=== PATIENT | male | born 1955 | race Caucasian/White ===

== ENCOUNTER 2023-11-16 17:51 | Inpatient (IN) | payer MEDICARE, OTHER, SELFPAY ==
[2023-11-16 15:33] VITALS: BP 146/89
[2023-11-16 16:08] LABS: % Basophils 0.6 % (0-2); % Eosinophils 2.7 % (0-6); % Immature Granulocytes 0.9 % (0-0.5); % Lymphocytes 11.7 % (20.5-51.1); % Monocytes 10.6 % (1.7-9.3); % Neutrophils 73.5 % (42.2-75.2); Absolute Basophils 0.1 10^3/uL (0-0.2); Absolute Eosinophils 0.3 10^3/uL (0-0.7); Absolute Immature Granulocytes 0.1 10^3/uL (0-0.05); Absolute Lymphocytes 1.2 10^3/uL (1.2-3.4); Absolute Monocytes 1.1 10^3/uL (0.1-0.6); Absolute Neutrophils 7.5 10^3/uL (1.4-6.5); Hematocrit 39.1 % (39.0-52.0); Hemoglobin 13.2 g/dL (13.0-18.0); Mean Corp Hgb Conc. 33.8 g/dL (33.0-37.0); Mean Corpuscular Hgb 30.1 pg (27.0-31.0); Mean Corpuscular Volume 89.3 fL (80.0-94.0); Mean Platelet Volume 8.5 fL (7.4-10.4); Nucleated Red Blood Cells % 0 % (-); Platelet Count 425 10^3/uL (130-400); Red Blood Cell Count 4.38 10^6/uL (4.70-6.10); White Blood Cell Count 10.2 10^3/uL (4.8-10.8)
[2023-11-16 16:22] LABS: ALT (SGPT) 165 U/L (0-50); AST (SGOT) 120 U/L (17-59); Alkaline Phosphatase 129 U/L (38-126); Blood Urea Nitrogen 20 mg/dl (9-20); Calcium 9.3 mg/dl (8.4-10.2); Carbon Dioxide 25 mmol/L (22-30); Chloride 101 mmol/L (98-107); Glucose 169 mg/dl (70-99); Potassium 4.3 mmol/L (3.5-5.1); Sodium 136 mmol/L (135-145); Total Bilirubin 0.6 mg/dl (0.2-1.3); Total Protein 5.9 g/dl (6.3-8.2); eGFR > 60.00
--- NOTE | 2023-11-16 16:36 | ED.GENMED ---
History of Present Illness
General
Chief Complaint: Skin Problem
Source: patient and physician
Time Seen by Provider: 11/16/23 16:27
Travel History
Have you had any contact with someone who has COVID-19?: No
Do you have any symptoms of coronavirus? Fever > 100 degrees, chills, cough, shortness of breath, sore throat, loss of taste or smell, muscle aches, or headache?: No
History of Present Illness
History of Present Illness:
68-year-old male with past medical history of hypertension, hyperlipidemia, diabetes, previous VA, known diabetic neuropathy sent to the emergency department by primary care physician with concern for right great toe cellulitis/osteomyelitis that
patient notes he has had a chronic wound that has not been healing despite oral antibiotics over the last week or so. Patient states that due to diabetic neuropathy he is not in any pain. Denies any fevers, chills, rigors. Has never seen a
cigar head stringer. He has no other concerns at this time. Per patient's primary care physician patient has had poorly controlled diabetes with his last A1c being greater than 11.
Past History
Past History
ED Past Medical History: HTN, Hypercholesterolemia, NIDDM, VA and Other (Sleep apnea status post left knee meniscectomy )
ED Past Surgical History: Cardiac and Orthopedic
Social History
Tobacco: Non-smoker
Alcohol: None
Drug: None
Personal:
Living: with family
Family History
Family History: Diabetes
Review of Systems
Review of Systems
All Other Systems: ROS reviewed and negative except as documented in HPI and ROS
Phy Exam
Physical Exam
Physical Exam:
GENERAL: Alert , in no apparent distress
EYE: conjunctiva clear
Head: Normocephalic atraumatic
NECK: Supple,
ENT: mmm.
LUNGS: no acute respiratory distress
NEUROLOGICAL: Alert and oriented
SKIN: Warm and dry, right great toe: Distal aspect of the distal first metatarsal and entirety of the right great toe have significant erythema with skin breakdown and necrotic eschar over the toenail. Patient's second toe also appears to have a
small eschar/older appearing bruise underneath the toenail.
MUSCULOSKELETAL: Easily palpable DP and PT pulses. Sensory is diminished but patient reports that this is chronic. Cap refill less than 2 seconds.
PSYCH: Normal and appropriate interaction.
Scores
Heart Failure Risk
Heart Failure Risk Score: Not Applicable
Heart Score for Chest Pain Patients
STEMI patient?: Not applicable
Withdrawal Assessment of Alcohol
Withdrawal Assessment Completed?: Not applicable
Course
Orders/Labs/Results
Orders:
Orders
11/16/23 Dinner
2200 calorie (18 carb) Diabetic
At Your Request: Full Participation
Does patient need a safe tray?: No
11/16/23 15:46
CMP [Comprehensive Metabolic Panel] Urgent
Complete Blood Count/With Diff Urgent
Blood Culture Urgent
VAN Source: Blood/Venous
Specimen Description:
11/16/23 16:27
CR Foot - Left Min 3 Views Urgent
Reason For Exam: osteo/gangrene suspected
11/16/23 16:57
CRP [C-Reactive Protein] Urgent
ESR [Erythrocyte Sed Rate] Urgent
11/16/23 17:38
INFECTIOUS DISEASE CONSULT Routine
Consulting Provider: Aida Aguirre
Was physician already notified: Yes
Reason for consult: diabetic , gangrenous right great toe with poss osteo
11/16/23 17:39
Admit/Transfer Patient As Directed
Co-Sign Provider:
Level of Care: Inpatient admission
Assign to:: Medical/Surgical
Physician / Group: shola chu
Diagnosis: cellulitis R great toe with gangrene/likely osteo, dm2, transamintis
Reason for Hospitalization: cellulitis R great toe with gangrene/likely osteo, dm2, transamintis
Expected length of stay greater than two midnights?: Yes
ELOS- Estimated Length of Stay in days: 4
I certify the patient meets the requirements for IP care: Yes
11/16/23 17:41
Code Status As Directed
Resuscitation Status: Full Code
11/16/23 17:45
PODIATRY CONSULT Routine
Consulting Provider: Lamberto Reyna
Was physician already notified: Yes
Reason for consult: dibetic with cellulitis r great toe likely osteo
11/16/23 18:35
Aspirin Low Dose EC [Aspir Low (Enteric Coated)] 81 mg PO QPM
Dextrose 50%-Water [Dextrose 50% Syringe] 12.5 grams IV H74HMMS PRN
Glucagon [GlucaGen] 1 mg IM PRN PRN
VANCOMYCIN Pharmacy to Dose [VANCOCIN Pharmacy to Dose] 1 each Pharmacy To Prepare [Call Pharmacy To Prepare] 0 ml IV PER PROTOCOL
11/16/23 18:35
Activity As Directed
Activity Level: As Tolerated
Bedside Glucose Monitoring As Directed
Frequency: AC&HS
Comment: Change to q6h if pt on TPN, tube feeding or not eating
Vital Signs As Directed
Frequency: Per unit guidelines
Ot Eval And Treat Routine
Pt Eval And Treat Routine
Activity Level: As Tolerated
DX Deep Vein Thrombosis Video Routine
11/16/23 20:00
Piperacillin/Tazo 3.375 Gram [Zosyn] 3.375 gram in 50 ml IV Q6H
11/16/23 22:00
Insulin Glargine Lantus [Lantus] 25 units Subcutaneous Insulin Syringe [Syringe-Insulin] 0 unit SC HS
Latanoprost [Xalatan Ophthalmic Solution] 0 drop BOTH EYES HS
Cpap [RESP] Routine
Patient to use own unit?: Yes
11/17/23 Breakfast
NPO
Allow oral meds: Yes
Allow clear liquids: No
NPO with Ice Chips: No
Cardiovascular Evaluation IN AM
Complete Blood Count/With Diff IN AM
Comprehensive Metabolic Panel IN AM
Glycohemoglobin (HgbA1c) IN AM
11/17/23 07:30
Insulin Aspart High Resistance [Novolog Flexpen-High Resistance] See Protocol SC AC
11/17/23 08:00
Lisinopril [Zestril] 2.5 mg PO DAILY
11/17/23 18:00
Enoxaparin Sodium [Lovenox] 40 mg SC QPM
11/18/23 06:00
Complete Blood Count/With Diff IN AM
Comprehensive Metabolic Panel IN AM
11/19/23 06:00
Complete Blood Count/With Diff IN AM
Comprehensive Metabolic Panel IN AM
Abnormal Lab Results
11/16/23 11/16/23
15:46 16:57
RBC 4.38 L 10^6/uL
(4.70-6.10)
Plt Count 425 H 10^3/uL
(130-400)
Abs Immat Gran (auto) 0.1 H 10^3/uL
(0-0.05)
Absolute Neuts (auto) 7.5 H 10^3/uL
(1.4-6.5)
Absolute Monos (auto) 1.1 H 10^3/uL
(0.1-0.6)
Immature Gran % 0.9 H %
(0-0.5)
Lymphocytes % 11.7 L %
(20.5-51.1)
Monocytes % 10.6 H %
(1.7-9.3)
ESR 68 H mm/hour
(0-20)
Glucose 169 H mg/dl
(70-99)
AST 120 H U/L
(17-59)
ALT 165 H U/L
(0-50)
Alkaline Phosphatase 129 H U/L
(38-126)
C-Reactive Protein 140.50 H mg/L
(0.0-10.00)
Total Protein 5.9 L g/dl
(6.3-8.2)
Albumin 3.0 L g/dl
(3.5-5.0)
11/16/23 15:46
11/16/23 15:46
Vital Signs
Initial and Last Documented VS:
Initial Vital Signs
Temp Pulse Resp BP Pulse Ox
97.8 F 108 18 146/89 95
11/16/23 15:33 11/16/23 15:33 11/16/23 15:33 11/16/23 15:33 11/16/23 15:33
Last Documented Vital Signs
Temp Pulse Resp BP Pulse Ox
97.8 F 94 18 151/83 95
11/16/23 18:23 11/16/23 18:23 11/16/23 18:23 11/16/23 18:23 11/16/23 18:23
MDM/Problems Addressed
Differential Diagnosis Includes:
Cellulitis, osteomyelitis, necrotizing fasciitis
MDM/Problems Addressed:
68-year-old male presenting the emergency department for evaluation at the request of primary care physician ultimately for admission and surgical consultation with podiatry for a significant right great toe infection suspicious for osteomyelitis.
Patient is denying any fevers, chills, rigors. Labs were initiated in triage. Will add on inflammatory markers and x-ray. Will notify hospitalist team as well as podiatry.
Chronic conditions affecting care: DM
Acute Exacerbation and/or Progression of Chronic Illness: DM
*Radiology
Radiology exam reviewed: radiology read reviewed
*Pulse Oximetry
Patient hypoxic: no
*Critical Care Note
Total Time (30-74mins, 75-104mins- exclusive of procedures): Not Applicable
Data Reviewed
Review of Other/Old Records Reveals: Labs
Source: patient and physician
Patient Management
Discussion with other providers: Hospitalist, PCP and Atmospheric Physicist
Escalation/DeEscalation of care consider admission/obs:
Hospitalist team is aware and accepts for continued evaluation and treatment. Podiatry states that they will be down to the emergency department to evaluate the patient to help formulate treatment planning.
ED Attending Note
-
Portions of this chart may have been created with voice recognition software.� Occasional wrong word or��sound alike� substitutions may have occurred due to the inherent limitations of voice recognition software.
Discharge Plan
Departure
Patient Disposition: Admit
Date of Disposition: 11/16/23
Time of Disposition: 16:36
Presentation/result/management discussed w/ accepting MD/DO: Hospitalist
Discharge Problem:
Osteomyelitis of great toe of right foot, Diabetes mellitus, Transaminitis
Interventions
Interventions:
*Risk Screen - Suicide Last Done: 11/16/23 15:33
*General Assessment Last Done: 11/16/23 16:52
*Neglect/Abuse Screening Last Done: 11/16/23 15:33
ED- Fall Risk Assessment Last Done: 11/16/23 16:52
*ED COVID-19 Vaccine History Last Done: 11/16/23 15:33
*Nursing Disposition Last Done: 11/16/23 17:57
ED-Skin Assessment Last Done: 11/16/23 16:52
Discharge Date and Time
Discharge Date/Time: 11/16/23 18:10
--- NOTE | 2023-11-16 16:56 | HPS.HSE ---
Addendum entered and electronically signed by Cassi Epstein MD 11/16/23 18:05:
I saw and examined the patient.
The [employer] PRODUCT TESTER or PA's note was reviewed and I agree with the note.
Comment:
68 years old male presented with infection/gangrenous looking left big toe, highly suspicious for underlying osteomyelitis. Patient reported he was taking oral antibiotics at home with no improvement. No podiatry follow-up in the past. Poorly
controlled diabetes. Noncompliant with diet at home. Reportedly his hemoglobin A1c was more than 11. Patient denied chest pain, shortness of breath or palpitations.
Physical Exam
-
General: Well Developed and No Apparent Distress
HEENT: Normocephalic, Atraumatic, Moist Mucous Membranes.
Respiratory: Clear to Auscultation
Cardiac: Regular Rhythm and S1/S2;
GI: Soft, Nontender, Nondistended and Normal Bowel Sounds.
Rectal: No rectal bleeding noted.
Musculoskeletal: Left foot: necrotic wound around the big toe that track deep to the bone.
Skin: Negative Rash
Neuro: Awake, Alert, Oriented, AO x 3 and Nonfocal/Grossly Intact
Psych: Calm
#Right great toe cellulitis /gangrene with chronic wound /diabetic wound
Patient is not septic or toxic looking. No fever. No leukocytosis. Will check ESR and CRP
Empiric IV antibiotics.
-Order x-ray right foot
-N.p.o. 4 OR in a.m. for debridement with amputation right great toe possible MCP
-IV vancomycin, IV Zosyn
-Follow CBC, BMP
Appreciate podiatry and ID input/help
#DM 2/diabetic neuropathy�uncontrolled
Last HgbA1c> 11
-Accu-Cheks with SSI high, check HgbA1c
-2200 diet
-Hold Trulicity, Jardiance, metformin
-Continue Lantus 25 units at bedtime since patient will be n.p.o. past midnight
Patient is normally on 55 units at bedtime
#Acute transaminitis unclear etiology likely reactive
AST 120, ALT 165, alk phos 129
-Hold statin 40 mg at bedtime
-Follow lipid profile
#HTN�benign
Continue lisinopril 2.5 mg daily
#HLD
Hold statin due to transaminitis
#CAD/[place] status post cardiac stent 2013
�-pt advised� not take nitro with Sildenafil
-Continue aspirin 81 mg daily, hold current statin due to transaminitis continue lisinopril
#Sleep apnea
-CPAP patient may use own
#Erectile dysfunction
Hold sildenafil
DVT prophylaxis
Will start subcu Lovenox postsurgery tomorrow 11/17/2023
Total time spent to see the patient, examine the patient on the floor, review data and lab results, discuss treatment plan with patient, ER doctor and nursing staff around 75 minutes
Original Note:
Family Physician
-
Family Physician: Edgar Sethi
Chief Complaint
-
Right great toe cellulitis
History of Present Illness
68-year-old male sent by his PCP to the ER today for right great toe cellulitis concern for osteomyelitis. He has had a chronic wound that has been not healing since August and got worse over the past week with black eschar and erythema extending
to first MCP right great toe. He decided to take his amoxicillin 500 mg 3 times daily that he had for a prior dental infection. He denies headache, dizziness, chest pain, palpitations, shortness of breath, cough, abdominal pain, nausea vomiting or
diarrhea, fever, chills, urinary symptoms. He has past medical history of DM 2 poorly controlled with last A1c greater than 11. Other past medical history includes diabetic neuropathy, HTN, HLD, CAD/[place] status post stent, sleep apnea/CPAP, obesity.
Medical History
Past Medical History
Past Medical History: Reports Other
Additional Past Medical History:
DM 2�uncontrolled/diabetic neuropathy
HTN
HLD
CAD/[place] status post stent 2013
sleep apnea/CPAP
obesity.
Past Surgical History: Reports Other
Additional Past Surgical History:
Cardiac stent 2013
Left knee meniscus repair 1999
Social History
Tobacco: Non-smoker
Alcohol: None
Drug: None
Personal:
Living: With Family ( Diana)
Employment: Retired
Family History
Family History: Not pertinent
Allergies / Home Medications
Allergies reflects when Allergies were last updated in [facility].
Home Medications with original date entered in [facility]
Allergy/Medication List:
Allergies
Allergy/AdvReac Type Severity Reaction Status Date / Time
cat gut sutures Allergy Unknown Uncoded 11/16/23 15:39
Home Medications
glucosamine-chondroitin 250 mg-200 mg tablet (Osteo Bi-Flex) 2 tab PO BID@0800,1700 ##0 07/16/10
atorvastatin 40 mg tablet 40 mg PO QPM #90 tabs 11/02/13
lisinopril 2.5 mg tablet 2.5 mg PO DAILY #90 tabs 11/03/13
aspirin 81 mg tablet,delayed release 81 mg PO QPM 11/16/23
calcium carbonate 600 mg-vitamin D3 5 mcg (200 unit) tablet (Calcium 600 + D(3)) 1 tab PO QPM 11/16/23
dulaglutide 4.5 mg/0.5 mL subcutaneous pen injector (Trulicity) 4.5 mg SC TU 11/16/23
empagliflozin 25 mg tablet (Jardiance) 25 mg PO DAILY 11/16/23
insulin glargine 100 unit/mL (3 mL) subcutaneous pen (Lantus Solostar U-100 Insulin) 55 unit SC HS 11/16/23
latanoprost 0.005 % eye drops 1 drp BOTH EYES HS 11/16/23
metformin 1,000 mg tablet 1,000 mg PO BID@0800,1700 11/16/23
multivitamin 1 tab PO DAILY 11/16/23
nitroglycerin 0.4 mg sublingual tablet 0.4 mg sublingual [id number] PRN chest pain 11/16/23
sildenafil 100 mg tablet 100 mg PO DAILY PRN ed 11/16/23
Review of Systems
-
History Source: Patient
A 12 point ROS was completed and negative except as noted: Yes
Constitutional: Denies Fever or Chills
EENT: Denies Sore Throat or Runny Nose
Respiratory: Denies Cough or Trouble Breathing
Cardiac: Denies Chest Pain, Diaphoresis, Palpitations or Syncope
Abdomen/GI: Denies Abdominal Pain, Nausea, Vomiting, Diarrhea, Constipated, Bloody Stools or Black Stools
: Denies Dysuria, Frequency, Flank Pain, Incontinence, Difficulty Voiding or Urgency
Musculoskeletal: Reports Other (Left great toe with medial and lateral aspects black eschar, swelling to great toe with erythema extending to MCP joint, palpable bone with end of a Q-tip by podiatry at bedside patient with no feeling to lower foot
but +2 dorsal pedal pulse); Denies Joint Pain or Edema
Skin: Denies Itching or Rash
Neurological: Denies Dizzy, Headache or Weakness
Endocrine: Reports No Symptoms
Hematologic/Lymphatic: Reports No Symptoms
Psych: Reports Calm
Physical Exam
Vital Signs
Vital Signs
Temp Pulse Resp BP Pulse Ox
97.8 F 108 18 146/89 95
11/16/23 15:33 11/16/23 15:33 11/16/23 15:33 11/16/23 15:33 11/16/23 15:33
Physical Exam
General: Comfortable and Conversant; No Pain, Fever or Chills
HEENT: NormoCephalic, Anicteric, PERRLA, [place] Conjunctivae and No Ptosis
Respiratory: Clear; No Wheezes, Rales or Rhonchi
Cardiac: S1/S2 and Regular Rhythm; No Murmur, Rub, Gallop or Peripheral Edema
Breast: Deferred by me
GI: Soft, Non Tender, Non Distended, Normal Bowel Sounds and No Hepatosplenomegaly
Rectal: Deferred by Provider
Genito-urinary: Deferred by me
Musculoskeletal: No Clubbing, No Cyanosis and Edema, Left Lower Extremity (Left great toe with medial and lateral aspects black eschar, swelling to great toe with erythema extending to MCP joint, palpable bone with end of a Q-tip by podiatry at
bedside patient with no feeling to lower foot but +2 dorsal pedal pulse); No Edema, Left Upper Extremity, Edema, Right Upper Extremity or Edema, Right Lower Extremity
Skin: Warm, Dry and Other (Left great toe with medial and lateral aspects black eschar, swelling to great toe with erythema extending to MCP joint, palpable bone with end of a Q-tip by podiatry at bedside patient with no feeling to lower foot but +2
dorsal pedal pulse); No Rash
Neuro: AO x 3, No Motor Deficits, Nonfocal/grossly intact and Cranial Nerves Intact; No Slurred Speech, Facial Droop or Tremors
Psych: Calm
Laboratory Results
-
11/16/23 15:46
11/16/23 15:46
Laboratory Results
Total Bilirubin 0.6 mg/dl (0.2-1.3) 11/16/23 15:46
AST 120 U/L (17-59) H 11/16/23 15:46
ALT 165 U/L (0-50) H 11/16/23 15:46
Alkaline Phosphatase 129 U/L (38-126) H 11/16/23 15:46
Impression/Plan
-
Impression/plan:
Admit to MedSurg
#Right great toe cellulitis /gangrene with chronic wound /diabetic wound
-Consult podiatry
-X-ray right foot
-N.p.o. 4 OR in a.m. for debridement with amputation right great toe possible MCP
-CRP pending
-IV vancomycin, IV Zosyn
-Follow CBC, BMP
#DM 2/diabetic neuropathy�uncontrolled
Last HgbA1c> 11
-Accu-Cheks with SSI high, check HgbA1c
-2199 diet
-Hold Trulicity, Jardiance, metformin
-Continue Lantus 25 units at bedtime is normally on 55 units at bedtime
#Acute transaminitis unclear etiology likely reactive
AST 120, ALT 165, alk phos 129
-Hold statin 40 mg at bedtime
-Follow lipid profile
#HTN�benign
Continue lisinopril 2.5 mg daily
#HLD
Hold statin due to transaminitis
#CAD/[place] status post cardiac stent 2013
-pt advised not take nitro with Sildenafil
-Continue aspirin 81 mg daily, hold current statin due to transaminitis continue lisinopril
#Sleep apnea
-CPAP patient may use own
#Erectile dysfunction
Hold sildenafil
DVT prophylaxis
Will start subcu Lovenox postsurgery tomorrow 11/17/2023
Full code
--- NOTE | 2023-11-16 17:19 | W.PN.POD ---
Today's Communication
Today's Communication
probable osteo/full consult dictated
sx tomorrow
npo after midnight
Assessment / Plan
-
ulcer/dm left hallux---probable osteo, xrays pending
will need amp hallux and probably 1st met head resection with delayed closure
start abx, xrays order
npo after midnight tonight
surgery tomorrow
rec Id consult
Subjective
Chief Complaint
pt seen with chronic wound left foot on hallux. Pt had since aug. Pt placed himself on amox from dentist
Has recently gotten worse
Subjective
vasc intact
dem necrotic ulcer hallux medially, blows out dorsally
+ probe to bone and also 1st met head
pus noted, + cellulitis and odor
Objective
Temp Pulse Resp BP Pulse Ox
97.8 F 97 18 146/89 95
11/16/23 15:33 11/16/23 17:00 11/16/23 15:33 11/16/23 15:33 11/16/23 17:00
11/16/23 15:46
11/16/23 15:46
Vital Signs and Lab results were reviewed.
[2023-11-16 17:23] LABS: Erythrocyte Sed Rate 68 mm/hour (0-20)
[2023-11-16 17:45] VITALS: BP 133/116
--- NOTE | 2023-11-16 17:57 | EDRN ---
this RN called the receiving unit and notified them that paper report was going to be tubed up
[2023-11-16 18:23] VITALS: BP 151/83; BMI 30.2
[2023-11-16 18:55] LABS: Glucose - Point of Care 91 mg/dl (70-99)
--- NOTE | 2023-11-16 19:22 | PTCARENOTE ---
1820 Received patient from ED AAox3. Pt oriented to room. Wound care done to Left great toe. Pt tolerated diet. Offered no complaints. Cont to assess patient status.
--- NOTE | 2023-11-16 19:55 | PHA.VAN.IN ---
Assessment
- Assessment
Renal Function: Appears similar to baseline
Concomitant Antimicrobials: ZOSYN
- Previous Dosing Experience
Previous Regimen: NONE
AUC Dosing Plan
- Dosing Variables
Dosing Weight (kg): 95.3
Dosing CrCl (ml/min): 91
Vd coefficient (L/kg): 0.6
- Empiric Dosing
Initial / Loading Dose: 2GM
Maintenance Regimen: 1GM IV Q12H
Estimated AUC (mcg*h/mL): 455
Estimated Peak (mcg*h/mL): 28.4
Estimated Trough (mcg/ml): 11.8
Estimated Half Life (H): 8.7
Pharmacokinetics Vancomycin I
- -
Patient Age: 68
Patient Sex: Male
Vancomycin Day #: 1
Indication: Diabetic Foot (GANGRENE)
Requesting Provider: GEORGE
Height / Weight:
Height 5 ft 10 in
Actual Weight 95.339 kg
Pertinent Past Medical History: FAILED OUTPT [place]
- Vital Signs / Lab Results
Temp Pulse Resp BP Pulse Ox
97.8 F 94 18 151/83 95
11/16/23 18:23 11/16/23 18:23 11/16/23 18:23 11/16/23 18:23 11/16/23 18:23
Lab Results - Hematology
11/16/23
15:46
WBC 10.2
Lab Results - Chemistry
11/16/23
15:46
BUN 20
Creatinine 0.9
Albumin 3.0 L
[2023-11-16] MEDS: VANCOCIN 540 MG IV (20:42)
[2023-11-16] MEDS: ASPIR LOW (ENTERIC COATED) 81 MG PO ×2 (20:42→20:43)
[2023-11-16] MEDS: ZOSYN 50 IV (20:43)
[2023-11-16] MEDS: XALATAN OPHTHALMIC SOLUTION 1 DROP BOTH EYES (20:43)
[2023-11-16] MEDS: LANTUS 0.25 UNITS SC (21:38)
[2023-11-16 21:39] LABS: Glucose - Point of Care 143 mg/dl (70-99)
[2023-11-16 23:31] VITALS: BP 130/77
[2023-11-17] VITALS (13 sets, daily range): BP systolic 10–134; BP diastolic 53–73
[2023-11-17] MEDS: ZOSYN 50 IV ×4 (02:32→19:55)
[2023-11-17] MEDS: VANCOCIN 200 IV (06:30)
[2023-11-17 07:31] LABS: Glucose - Point of Care 111 mg/dl (70-99)
[2023-11-17 08:18] LABS: % Basophils 0.7 % (0-2); % Immature Granulocytes 0.8 % (0-0.5); % Neutrophils 60.5 % (42.2-75.2); Absolute Basophils 0.1 10^3/uL (0-0.2); Absolute Eosinophils 0.5 10^3/uL (0-0.7); Absolute Immature Granulocytes 0.1 10^3/uL (0-0.05); Absolute Lymphocytes 1.5 10^3/uL (1.2-3.4); Absolute Monocytes 1.2 10^3/uL (0.1-0.6); Absolute Neutrophils 5.1 10^3/uL (1.4-6.5); Hematocrit 34.5 % (39.0-52.0); Hemoglobin 11.8 g/dL (13.0-18.0); Mean Corp Hgb Conc. 34.2 g/dL (33.0-37.0); Mean Corpuscular Hgb 30.5 pg (27.0-31.0); Mean Corpuscular Volume 89.1 fL (80.0-94.0); Mean Platelet Volume 8.6 fL (7.4-10.4); Nucleated Red Blood Cells % 0 % (-); Platelet Count 388 10^3/uL (130-400); Red Blood Cell Count 3.87 10^6/uL (4.70-6.10); Red Cell Dist. Width 13.2 % (11.5-14.5); White Blood Cell Count 8.5 10^3/uL (4.8-10.8)
--- NOTE | 2023-11-17 08:34 | PHA.VAN.FU ---
Vancomycin Assessment / Plan
- Assessment
Renal Function: SCR Decreasing
WBC's are: WNL
In the past 24 hrs, patient has been: Afebrile
Concomitant Antimicrobials: piperacillin/tazobactam
- Dosing Plan
Adjust Regimen to: Vanc 1500mg Q12H starting at 1800
New Regimen Predicts: AUC (478), Peak (32), Trough (11)
Dosing Comments: utilized est CrCl 117, Vd 0.7 in dosing calculations
- Monitoring Plan
No level(s) ordered at this time: consider levels in next few days
- Follow Up
Pharmacy will continue to follow.
Vancomycin Follow UP
- -
Patient Age: 68
Patient Sex: Male
Vancomycin Day #: 2
Indication: Diabetic Foot
Requesting Provider: Leonard Lynn
Pertinent Antimicrobial Allergies:
no pertinent antibiotic allergies
Height / Weight:
Height 5 ft 10 in
Actual Weight 95.339 kg
Pertinent Past Medical History: BMI ~30, DM2
- Vital Signs / Lab Results
Temp Pulse Resp BP Pulse Ox
98.6 F 83 18 130/77 97
11/16/23 23:31 11/16/23 23:31 11/16/23 23:31 11/16/23 23:31 11/16/23 23:31
Lab Results - Hematology
11/16/23 11/17/23
15:46 07:14
WBC 10.2 8.5
Lab Results - Chemistry
11/16/23
15:46
BUN 20
Creatinine 0.9
Albumin 3.0 L
[2023-11-17] MEDS: ZESTRIL 2.5 MG PO (08:39)
[2023-11-17] MEDS: NOVOLOG FLEXPEN-HIGH RESISTANCE 1 UNITS SC (08:39)
[2023-11-17 08:54] LABS: Glycohemoglobin (HgbA1c) 8.7 % (4.0-5.6)
[2023-11-17 09:22] LABS: ALT (SGPT) 141 U/L (0-50); AST (SGOT) 69 U/L (17-59); Albumin 2.8 g/dl (3.5-5.0); Alkaline Phosphatase 118 U/L (38-126); Blood Urea Nitrogen 14 mg/dl (9-20); Calcium 8.2 mg/dl (8.4-10.2); Carbon Dioxide 26 mmol/L (22-30); Chloride 104 mmol/L (98-107); Estimated Creatinine Clearance 117 ml/min; Glucose 98 mg/dl (70-99); HDL Cholesterol 23 mg/dl; LDL Cholesterol, Calculated 53 mg/dl; Potassium 4.1 mmol/L (3.5-5.1); Sodium 135 mmol/L (135-145); Total Bilirubin 0.5 mg/dl (0.2-1.3); Total Cholesterol 97 mg/dl (50-199); Total Protein 5.5 g/dl (6.3-8.2); Triglyceride 106 mg/dl (10-149); Very Low Density Lipoprotein 21 mg/dl (0-30); eGFR > 60.00
--- NOTE | 2023-11-17 09:38 | W.PN.HOSP.TC ---
Today's Communication/Plan
-
.
Assessment / Plan
Assessment / Plan
Physical Exam
-
General: Well Developed and No Apparent Distress
HEENT: Normocephalic, Atraumatic, Moist Mucous Membranes.
Respiratory: Clear to Auscultation
Cardiac: Regular Rhythm and S1/S2;
GI: Soft, Nontender, Nondistended and Normal Bowel Sounds.
Rectal: No rectal bleeding noted.
Musculoskeletal: Left foot: now dressing but noted: necrotic wound around the big toe that track deep to the bone.
Skin: Negative Rash
Neuro: Awake, Alert, Oriented, AO x 3 and Nonfocal/Grossly Intact
Psych: Calm
#Right great toe cellulitis /gangrene with chronic wound /diabetic wound
Patient is not septic or toxic looking.� No fever.� No leukocytosis.�WBC at 8. Elevated ESR and CRP
Empiric IV antibiotics.
-Order x-ray right foot showed bony lucencies of the proximal distal phalanx, osteomyelitis cannot be excluded. Soft tissue changes of the great toe likely due to the known nonhealing wound.
-N.p.o. for surgery today, for debridement with amputation right great toe possible MCP
-IV vancomycin, IV Zosyn
- add IVF for NPO
Appreciate podiatry and ID input/help
#DM 2/diabetic neuropathy� hx of uncontrolled DM in the past
Last HgbA1c at 8.7
-Accu-Cheks with SSI
-2200 diet
-Holding Trulicity, Jardiance, metformin
-Continue Lantus 25 units at bedtime since n.p.o. past midnight, resume higher Lantus dose tonight post op.
Patient is normally on 55 units at bedtime
#Acute transaminitis unclear etiology likely reactive
Liver enzymes are coming down
AST 120, ALT 165, alk phos 129 on admission.
-Hold statin 40 mg at bedtime
-Lipid panel showed triglyceride 106, total cholesterol 97, LDL 53, HDL 23.
#HTN�benign
Blood pressure was uncontrolled yesterday, will monitor today, will add as needed hydralazine
Continue lisinopril 2.5 mg daily
#HLD
Hold statin due to transaminitis
#CAD/[place] status post cardiac stent 2013
�-pt advised� not take nitro with Sildenafil
-Continue aspirin 81 mg daily, hold current statin due to transaminitis continue lisinopril
#Sleep apnea
-CPAP patient may use own
#Erectile dysfunction
Hold sildenafil
DVT prophylaxis
Will start subcu Lovenox postsurgery tomorrow 11/17/2023
Total time spent to see the patient, examine the patient on the floor, review data and lab results, discuss treatment plan with patient and nursing staff around 55 minutes
Anticipated Discharge: > 48 hours
Subjective/Interval History
-
Date of Service: November 17, 2023
No chest pain. No leg pain. No abdominal pain. No shortness of breath
Objective Data
-
Labs:
Laboratory Results
11/17/23
07:14
WBC 8.5
Hgb 11.8 L
Hct 34.5 L
Plt Count 388
Sodium 135
Potassium 4.1
Chloride 104
Carbon Dioxide 26
BUN 14
Creatinine 0.7
Glucose 98
Calcium 8.2 L
Total Bilirubin 0.5
AST 69 H
ALT 141 H
Alkaline Phosphatase 118
Vital Signs:
Vital Signs
Temp Pulse Resp BP Pulse Ox
98.1 F 86 16 134/73 98
11/17/23 08:00 11/17/23 08:00 11/17/23 08:00 11/17/23 08:00 11/17/23 08:00
I&O
11/16/23 11/17/23 11/18/23
06:59 06:59 06:59
Intake Total 840 / 840
Balance 840 / 840
[2023-11-17] MEDS: NSS 1000 IV (10:21)
--- NOTE | 2023-11-17 11:13 | CON.ID ---
Consultation
-
Date/Time Consultation Requested: 11/16/2023 1738
Date/Time Consultation Performed: 11/17/2023 1041
Requesting Provider: Jodee Lynn
Performing Provider: Dr. Max
Reason for Consultation: Left hallux gangrene
Chief Complaint / Past History
History of Present Illness
Jace Matthews is a 68-year-old man being evaluated at the request of Jodee Lynn in regards to left hallux gangrene. History is obtained from chart review, along with patient interview. The patient has a significant past medical history of
diabetes mellitus, and recalls that his most recent A1c performed in August was around 11. In late August he developed a callus beneath his left hallux and he recalls picking at it. They subsequently bled, then stopped and appeared to improve.
He states that it was somewhat stable until approximately 1 week ago when he began to turn purple and then subsequently turned black. He called his PCP and was seen in the office yesterday and sent directly to the emergency room for further
evaluation.
He denies any recent fevers or chills. He denies any pain in the area, although he notes that his toe feels 'numb'. He reports that has been on antibiotics over the past month at the direction of his dentist, first on meticillin, and then
subsequently on amoxicillin.
Past History
Additional Past Medical History:
HTN
DM
Dyslipidemia
CAD; Hx [place]
JEREMIAS
Additional Past Surgical History:
PCTA with stenting
Meniscus tear repair'
Allergy History:
cat gut sutures Allergy (Uncoded 11/16/23 15:39)
Unknown
Current Antibiotics:
Vancomycin
Zosyn
Social History
Tobacco: Non-Smoker
Alcohol: None
Drug: None
Personal:
Living: With Family
Employment: Retired
Family History
Family History: Not Pertinent
Review of Systems
Vital Signs
Temp Pulse Resp BP Pulse Ox
98.1 F 86 16 134/73 98
11/17/23 08:00 11/17/23 08:00 11/17/23 08:00 11/17/23 08:00 11/17/23 08:00
Physical Exam
Physical Exam
Constitutional: No Acute Distress, Comfortable and Non-toxic
Head: Normocephalic
Eyes: Pupils Equal, Pupils Round, No Conjunctival Hemorrhage and Sclera Anicteric
Pharynx: Benign
Oral: No Thrush and No Ulcers
Lymph Nodes: Negative Lymphadenopathy
Cardiovascular: Regular Rate and S1/S2; Negative Murmur or Rub
Pulmonary: Clear, Symmetric and Non Labored; Negative Wheezes, Rales or Rhonchi
Gastrointestinal: Soft, Non Tender, Non Distended, Normal Bowel Sounds, No Rebound and No Guarding
Genito-Urinary: Negative Gamble
Extremities: Edema (Left lower extremity) and Erythema (Left foot)
Skin: Warm and Dry; Negative Rash or Jaundice
Wound: Other (Left hallux with tissue loss on the medial plantar surface. Positive malodor. Deep purple to black areas noted.)
Neurological: Awake and Alert
Psychological: Calm
Lab / Diagnostic Study Results
11/17/23 07:14
11/17/23 07:14
Abs Immat Gran (auto) 0.1 10^3/uL (0-0.05) H 11/17/23 07:14
Absolute Neuts (auto) 5.1 10^3/uL (1.4-6.5) 11/17/23 07:14
Absolute Lymphs (auto) 1.5 10^3/uL (1.2-3.4) 11/17/23 07:14
Absolute Monos (auto) 1.2 10^3/uL (0.1-0.6) H 11/17/23 07:14
Absolute Basos (auto) 0.1 10^3/uL (0-0.2) 11/17/23 07:14
Immature Gran % 0.8 % (0-0.5) H 11/17/23 07:14
Neutrophils % 60.5 % (42.2-75.2) 11/17/23 07:14
Lymphocytes % 18.0 % (20.5-51.1) L 11/17/23 07:14
Monocytes % 14.0 % (1.7-9.3) H 11/17/23 07:14
Eosinophils % 6.0 % (0-6) 11/17/23 07:14
Basophils % 0.7 % (0-2) 11/17/23 07:14
ESR 68 mm/hour (0-20) H 11/16/23 16:57
C-Reactive Protein 140.50 mg/L (0.0-10.00) H 11/16/23 16:57
Microbiology Results
Micro:
11/16/23 21:58 MRSA Screen - Pending
Nose
11/16/23 15:46 Blood Culture - Pending
Blood/Venous
11/16/2023 X-ray left foot: No acute fracture, dislocation or subluxation. No periosteal reaction or erosive changes. No radiopaque foreign bodies noted. Osteomyelitis cannot be excluded.
Assessment / Plan
Left hallux gangrene
Left foot cellulitis / complicated SSTI
Elevated ESR and CRP
Transaminitis
HTN
DM
Dyslipidemia
CAD; Hx [place]
JEREMIAS
Recommendations:
Continue with Zosyn and vancomycin. Monitor Vanco levels closely.
Patient for possible surgery later today for hallux amp +/- partial met resection
Check MRI of the left foot if can be done before surgery.
Please check intraoperative cultures and proximal margin if toe amputation is performed.
Tight glucose control.
[2023-11-17 11:28] LABS: Glucose - Point of Care 85 mg/dl (70-99)
[2023-11-17] MEDS: NOVOLOG FLEXPEN-HIGH RESISTANCE SC (11:28)
--- NOTE | 2023-11-17 13:55 | W.PN.UPDATE ---
Update Note
Progress Note Update
pt seen in RR
no paiin
dressing cdi
cft intact
a/p s/p hallux amp/1st met resection left---stable
partially closed and packed
nwb left foot
cont abx'
bone sent to path, C&s taken
anticipate closure wednesday or wed
appreciate all input
[2023-11-17 14:04] LABS: Glucose - Point of Care 70 mg/dl (70-99)
[2023-11-17 14:33] LABS: Glucose - Point of Care 71 mg/dl (70-99)
[2023-11-17 15:26] LABS: Glucose - Point of Care 166 mg/dl (70-99)
[2023-11-17] MEDS: NOVOLOG FLEXPEN-HIGH RESISTANCE 2 UNITS SC (15:33)
--- NOTE | 2023-11-17 15:58 | PTCARENOTE ---
Pt returned from PACU.Report from Porsha MAZA.Pt awake,alert and oriented x3. Pt has no c/o pain at this time VSS 96% on RA. Left foot dressing intact wrapped with hank bandage able to wiggle exposed toes.Pt reoriented to room, plan of care ongoing.
--- NOTE | 2023-11-17 16:59 | CM ---
CM following re: d/c planning
Chart reviewed
CM met with the patient at bedside; IA completed
Pt reports he and his spouse reside in a [place] with [employer]
[employer] patient reports independence at baseline
Pt has no past hx of VN/SNF/DME
Pt does have prescription coverage and rx's are filled at [facility] on [address]
Pt PCP-Edgar Sethi
Post disposition is uncertain at this time and new orders to be obtained due to recent surgery
CM will continue to follow patient progress and assist with needs at d/c as indicated
PLAN; CM following for d/c planning needs
[2023-11-17] MEDS: ASPIR LOW (ENTERIC COATED) 81 MG PO (17:24)
[2023-11-17] MEDS: LOVENOX 40 MG SC (17:25)
[2023-11-17] MEDS: VANCOCIN 300 ML IV (17:25)
[2023-11-17] MEDS: VANCOCIN 300 MG IV (17:25)
[2023-11-17] MEDS: XALATAN OPHTHALMIC SOLUTION 1 DROP BOTH EYES (19:55)
[2023-11-17 21:19] LABS: Glucose - Point of Care 241 mg/dl (70-99)
[2023-11-17] MEDS: LANTUS 0.25 UNITS SC (21:49)
[2023-11-17] MEDS: ULTRAM 50 MG PO (21:54)
[2023-11-18] MEDS: ZOSYN 50 IV ×4 (01:55→21:09)
[2023-11-18 03:30] VITALS: BP 127/73
[2023-11-18] MEDS: VANCOCIN 300 ML IV ×2 (06:15→17:19)
[2023-11-18] MEDS: VANCOCIN 300 MG IV ×2 (06:15→17:19)
[2023-11-18 06:24] LABS: % Basophils 0.4 % (0-2); % Eosinophils 1.2 % (0-6); % Immature Granulocytes 1.1 % (0-0.5); % Lymphocytes 16.8 % (20.5-51.1); % Monocytes 9.1 % (1.7-9.3); % Neutrophils 71.4 % (42.2-75.2); Absolute Eosinophils 0.1 10^3/uL (0-0.7); Absolute Immature Granulocytes 0.1 10^3/uL (0-0.05); Absolute Lymphocytes 1.7 10^3/uL (1.2-3.4); Absolute Monocytes 0.9 10^3/uL (0.1-0.6); Absolute Neutrophils 7.2 10^3/uL (1.4-6.5); Hemoglobin 11.7 g/dL (13.0-18.0); Mean Corp Hgb Conc. 33.4 g/dL (33.0-37.0); Mean Corpuscular Hgb 30.5 pg (27.0-31.0); Mean Corpuscular Volume 91.1 fL (80.0-94.0); Mean Platelet Volume 8.6 fL (7.4-10.4); Nucleated Red Blood Cells % 0 % (-); Platelet Count 400 10^3/uL (130-400); Red Blood Cell Count 3.84 10^6/uL (4.70-6.10); Red Cell Dist. Width 13.1 % (11.5-14.5); White Blood Cell Count 10.1 10^3/uL (4.8-10.8)
[2023-11-18 06:47] LABS: ALT (SGPT) 103 U/L (0-50); AST (SGOT) 45 U/L (17-59); Albumin 2.6 g/dl (3.5-5.0); Alkaline Phosphatase 95 U/L (38-126); Blood Urea Nitrogen 19 mg/dl (9-20); Calcium 8.4 mg/dl (8.4-10.2); Carbon Dioxide 27 mmol/L (22-30); Chloride 100 mmol/L (98-107); Estimated Creatinine Clearance 102 ml/min; Glucose 113 mg/dl (70-99); Potassium 4.5 mmol/L (3.5-5.1); Sodium 135 mmol/L (135-145); Total Bilirubin 0.5 mg/dl (0.2-1.3); Total Protein 5.2 g/dl (6.3-8.2); eGFR > 60.00
[2023-11-18 07:31] VITALS: BP 143/74
[2023-11-18 07:50] LABS: Glucose - Point of Care 201 mg/dl (70-99)
[2023-11-18] MEDS: ZESTRIL 2.5 MG PO (08:05)
[2023-11-18] MEDS: NOVOLOG FLEXPEN-HIGH RESISTANCE 4 UNITS SC (08:05)
--- NOTE | 2023-11-18 08:35 | W.PN.POD ---
Today's Communication
Today's Communication
s.p hallux amp/1st met lft foot---stable, resolving infection, bone( distal phal) gram + cocci, gram - rods, wbcs, as well as wound
path pending
packing advanced, bandages applied, PT consult for nwb left foot with crutches,
if stable tommorrow will place 3-4 sutures at bedside and should be able to be discharged, abx per ID
believe all infection bone resected surgically
Assessment / Plan
-
ulcer/dm left hallux---probable osteo, xrays pending
will need amp hallux and probably 1st met head resection with delayed closure
start abx, xrays order
npo after midnight tonight
surgery tomorrow
rec Id consult
Subjective
Chief Complaint
pt seen s/p hallux amp and 1st met resection
no pain
no fc/ns
bandags cdi
Subjective
vasc intact, cft intact, no active bleeding
derm mild edema and erythema, no pus, no cellulitis, no odor, no acute SOI
sutures/packing in place
Objective
Temp Pulse Resp BP Pulse Ox
98.1 F 87 16 143/74 97
11/18/23 07:31 11/18/23 07:31 11/18/23 07:31 11/18/23 07:31 11/18/23 07:31
11/18/23 05:30
11/18/23 05:30
Vital Signs and Lab results were reviewed.
Inspection: Other
--- NOTE | 2023-11-18 09:10 | W.PN.HOSP.TC ---
Today's Communication/Plan
-
.
Assessment / Plan
Assessment / Plan
Physical Exam
-
General: Well Developed and No Apparent Distress
HEENT: Normocephalic, Atraumatic, Moist Mucous Membranes.
Respiratory: Clear to Auscultation
Cardiac: Regular Rhythm and S1/S2;
GI: Soft, Nontender, Nondistended and Normal Bowel Sounds.
Rectal: No rectal bleeding noted.
Musculoskeletal: Left foot: now dressing but noted: necrotic wound around the big toe that track deep to the bone.
Skin: Negative Rash
Neuro: Awake, Alert, Oriented, AO x 3 and Nonfocal/Grossly Intact
Psych: Calm
#Right great toe cellulitis /gangrene with chronic wound /diabetic wound
s/p s/p hallux amputation and 1st met resection by Dr Reyna on 11/17. No complications reported
Partial closure for now
Patient is not septic or toxic looking.� No fever.� No leukocytosis.�WBC at 8. Elevated ESR and CRP
Empiric IV antibiotics.
-Order x-ray right foot showed bony lucencies of the proximal distal phalanx, osteomyelitis cannot be excluded. Soft tissue changes of the great toe likely due to the known nonhealing wound.
-IV vancomycin, IV Zosyn
Pain in foot, will add Tylenol & Motrin.
Appreciate podiatry and ID input/help
#DM 2/diabetic neuropathy� hx of uncontrolled DM in the past
Last HgbA1c at 8.7
-Accu-Cheks with SSI
-2200 diet
-Holding Trulicity, Jardiance, metformin
-Change Lantus to 55 units at bedtime. Patient is normally on 55 units at bedtime
#Acute transaminitis unclear etiology likely reactive
Liver enzymes are coming down
AST 120, ALT 165, alk phos 129 on admission.
-Hold statin 40 mg at bedtime
-Lipid panel showed triglyceride 106, total cholesterol 97, LDL 53, HDL 23.
#HTN�benign
Continue lisinopril 2.5 mg daily
# Mild acute blood loss anemia
no hypotension or dizziness.
#HLD
Hold statin due to transaminitis
#CAD/[place] status post cardiac stent 2013
�-pt advised� not take nitro with Sildenafil
-Continue aspirin 81 mg daily, hold current statin due to transaminitis continue lisinopril
#Sleep apnea
-CPAP patient may use own
#Erectile dysfunction
Hold sildenafil
DVT prophylaxis
Will start subcu Lovenox postsurgery 11/18/2023
Total time spent to see the patient, examine the patient on the floor, review data and lab results, discuss treatment plan with patient and nursing staff around 55 minutes
Anticipated Discharge: 24 - 48 hours
Subjective/Interval History
-
Date of Service: November 18, 2023
No chest pain
No sob
No abd pain
Sometimes infrequent sharp pain in left foot
Objective Data
-
Labs:
Laboratory Results
11/18/23
05:30
WBC 10.1
Hgb 11.7 L
Hct 35.0 L
Plt Count 400
Sodium 135
Potassium 4.5
Chloride 100
Carbon Dioxide 27
BUN 19
Creatinine 0.8
Glucose 113 H
Calcium 8.4
Total Bilirubin 0.5
AST 45
ALT 103 H
Alkaline Phosphatase 95
Vital Signs:
Vital Signs
Temp Pulse Resp BP Pulse Ox
98.1 F 87 16 143/74 97
11/18/23 07:31 11/18/23 07:31 11/18/23 07:31 11/18/23 07:31 11/18/23 07:31
I&O
11/17/23 11/18/23 11/19/23
06:59 06:59 06:59
Intake Total 840 / 840 1630 / 1630
Output Total 9045 / 2375
Balance 840 / 840 -745 / -745
--- NOTE | 2023-11-18 09:49 | PHA.VAN.FU ---
Vancomycin Assessment / Plan
- Assessment
Renal Function: Stable
WBC's are: WNL
In the past 24 hrs, patient has been: Afebrile
Concomitant Antimicrobials: piperacillin/tazobactam
- Dosing Plan
Continue: Vanc 1500mg Q12H
- Monitoring Plan
No level(s) ordered at this time: will hold off on levels for now
- Follow Up
Pharmacy will continue to follow.
Vancomycin Follow UP
- -
Patient Age: 68
Patient Sex: Male
Vancomycin Day #: 3
Indication: Diabetic Foot
Requesting Provider: Leonard Lynn
Pertinent Antimicrobial Allergies:
no pertinent antibiotic allergies
Height / Weight:
Height 5 ft 10 in
Actual Weight 95.339 kg
Pertinent Past Medical History: BMI ~30, DM2
- Vital Signs / Lab Results
Temp Pulse Resp BP Pulse Ox
98.1 F 87 16 143/74 97
11/18/23 07:31 11/18/23 07:31 11/18/23 07:31 11/18/23 07:31 11/18/23 07:31
Lab Results - Hematology
11/16/23 11/17/23 11/18/23
15:46 07:14 05:30
WBC 10.2 8.5 10.1
Lab Results - Chemistry
11/16/23 11/17/23 11/18/23
15:46 07:14 05:30
BUN 20 14 19
Creatinine 0.9 0.7 0.8
Estimated Creat Clear 117 102
Albumin 3.0 L 2.8 L 2.6 L
Microbiology Results
11/17/23 14:15 Tissue Culture - Preliminary
Bone Gram Stain - Preliminary
11/16/23 21:58 MRSA Screen - Final
Nose Staph aureus MRSA
11/17/23 14:00 Gram Stain - Preliminary
Foot - Left
11/16/23 15:46 Blood Culture - Preliminary
Blood/Venous No Growth in 24 hours- Final report to follow
[2023-11-18 11:03] LABS: Glucose - Point of Care 121 mg/dl (70-99)
[2023-11-18] MEDS: NOVOLOG FLEXPEN-HIGH RESISTANCE 1 UNITS SC ×2 (11:47→17:19)
[2023-11-18 11:51] VITALS: BP 135/77
[2023-11-18 12:47] VITALS: BP 146/67; PULSE 76; O2SAT 98
[2023-11-18] MEDS: TYLENOL 1000 MG PO ×2 (13:33→21:17)
--- NOTE | 2023-11-18 14:25 | W.PN.ID1 ---
Date of Service
Date of Service: November 18, 2023
Today's Communication
Continue antibiotics.
Assessment / Plan
Left hallux gangrene
- S/p hallux amp 11/17/2023
Left foot cellulitis / complicated SSTI
Elevated ESR and CRP
Transaminitis
HTN
DM
Dyslipidemia
CAD; Hx [place]
JEREMIAS
Recommendations:
Continue with Zosyn and vancomycin. Monitor Vanco levels closely.
Patient s/p hallux amp.
-Await cultures and path.
Tight glucose control.
����������������������������������������������������������
Chief Complaint
-: Other (Left hallux osteomyelitis)
Subjective / Review of Systems
Patient seen and examined. Patient underwent left hallux amputation yesterday. Currently reports pain controlled.
Review of Systems: No Fever and No Chills
Vital Signs / Physical Exam
Vital Signs
Vital Signs
Temp Pulse Resp BP Pulse Ox
98.4 F 83 16 135/77 98
11/18/23 11:51 11/18/23 11:51 11/18/23 11:51 11/18/23 11:51 11/18/23 11:51
Physical Exam
Constitutional: No Acute Distress, Comfortable and Non-toxic
Eyes: No Conjunctival Hemorrhage and Sclera Anicteric
Pulmonary: Non Labored
Extremities: Edema (Trace left lower extremity edema); Negative Erythema
Wound: Other (Left foot dressed. No erythema extending up the leg.)
Neurological: Awake and Alert
Objective Data
Lab Data
Lab Results
11/18/23 05:30
11/18/23 05:30
ESR 68 mm/hour (0-20) H 11/16/23 16:57
Estimated Creat Clear 102 ml/min 11/18/23 05:30
Total Bilirubin 0.5 mg/dl (0.2-1.3) 11/18/23 05:30
AST 45 U/L (17-59) 11/18/23 05:30
ALT 103 U/L (0-50) H 11/18/23 05:30
Alkaline Phosphatase 95 U/L (38-126) 11/18/23 05:30
C-Reactive Protein 140.50 mg/L (0.0-10.00) H 11/16/23 16:57
Most recent labs reviewed.
Micro Results:
11/17/23 14:00 Anaerobic Culture - Preliminary
Foot - Left Culture pending. Anaerobic cultures are examined after 3
days incubation. Additional information to follow.
11/17/23 14:00 Wound Culture - Preliminary
Foot - Left Gram Stain - Preliminary
11/17/23 14:15 Tissue Culture - Preliminary
Bone Gram Stain - Preliminary
11/16/23 21:58 MRSA Screen - Final
Nose Staph aureus MRSA
11/16/23 15:46 Blood Culture - Preliminary
Blood/Venous No Growth in 24 hours- Final report to follow
Imaging:
11/16/2023 X-ray left foot: No acute fracture, dislocation or subluxation. No periosteal reaction or erosive changes. No radiopaque foreign bodies noted. Osteomyelitis cannot be excluded.
[2023-11-18 15:58] VITALS: BP 121/75
[2023-11-18] MEDS: MOTRIN 400 MG PO (16:05)
[2023-11-18 16:31] LABS: Glucose - Point of Care 116 mg/dl (70-99)
[2023-11-18] MEDS: LOVENOX 40 MG SC (17:20)
[2023-11-18] MEDS: ASPIR LOW (ENTERIC COATED) 81 MG PO (17:20)
[2023-11-18] MEDS: XALATAN OPHTHALMIC SOLUTION 1 DROP BOTH EYES (21:12)
[2023-11-18 21:40] LABS: Glucose - Point of Care 118 mg/dl (70-99)
[2023-11-18] MEDS: LANTUS 0.299999999999999989 UNITS SC (22:06)
[2023-11-18 23:43] VITALS: BP 122/65
[2023-11-19] MEDS: ZOSYN 50 IV ×4 (02:54→20:56)
[2023-11-19] MEDS: VANCOCIN 300 MG IV ×2 (06:14→18:02)
[2023-11-19] MEDS: VANCOCIN 300 ML IV ×2 (06:14→18:02)
[2023-11-19 08:10] VITALS: BP 155/87
--- NOTE | 2023-11-19 08:26 | W.PN.POD ---
Today's Communication
Today's Communication
s/p hallux amp/1st met resection---stable
no SOI
will close at bedside today, just needs approx 4 sutures
pt to be nwb left foot, stable with PT per patient
will need daily bandage changes with betadine adaptic and dry bandages daily
cont abx, rec d/c on abx per Id, believe all osteo is resected
ok to eat, d/w hospitalist this am
stable for dc once I close wound
will close this afternoon
Assessment / Plan
-
ulcer/dm left hallux---probable osteo, xrays pending
will need amp hallux and probably 1st met head resection with delayed closure
start abx, xrays order
npo after midnight tonight
surgery tomorrow
rec Id consult
Subjective
Chief Complaint
s/p hallux amp and 1st met resection
no pain
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
Subjective
vasc intact, foot warm, cft intact
derm minimal edema and erythema, no cellulitis,no pus
no SOi
small areas need sutures, approx 4 needed
Objective
Temp Pulse Resp BP Pulse Ox
98.0 F 83 20 155/87 98
11/19/23 08:10 11/19/23 08:10 11/19/23 08:10 11/19/23 08:10 11/19/23 08:10
Vital Signs and Lab results were reviewed.
[2023-11-19 08:49] LABS: % Basophils 0.8 % (0-2); % Eosinophils 5.3 % (0-6); % Immature Granulocytes 2.1 % (0-0.5); % Lymphocytes 22.8 % (20.5-51.1); % Monocytes 9.4 % (1.7-9.3); % Neutrophils 59.6 % (42.2-75.2); Absolute Basophils 0.1 10^3/uL (0-0.2); Absolute Eosinophils 0.4 10^3/uL (0-0.7); Absolute Immature Granulocytes 0.2 10^3/uL (0-0.05); Absolute Lymphocytes 1.8 10^3/uL (1.2-3.4); Absolute Monocytes 0.8 10^3/uL (0.1-0.6); Absolute Neutrophils 4.7 10^3/uL (1.4-6.5); Hematocrit 37.2 % (39.0-52.0); Hemoglobin 12.4 g/dL (13.0-18.0); Mean Corp Hgb Conc. 33.3 g/dL (33.0-37.0); Mean Corpuscular Volume 90.1 fL (80.0-94.0); Mean Platelet Volume 8.3 fL (7.4-10.4); Nucleated Red Blood Cells % 0 % (-); Platelet Count 442 10^3/uL (130-400); Red Blood Cell Count 4.13 10^6/uL (4.70-6.10); Red Cell Dist. Width 13.1 % (11.5-14.5)
--- NOTE | 2023-11-19 08:54 | W.PN.HOSP.TC ---
Today's Communication/Plan
-
.
Assessment / Plan
Assessment / Plan
Physical Exam
-
General: Well Developed and No Apparent Distress
HEENT: Normocephalic, Atraumatic, Moist Mucous Membranes.
Respiratory: Clear to Auscultation
Cardiac: Regular Rhythm and S1/S2;
GI: Soft, Nontender, Nondistended and Normal Bowel Sounds.
Rectal: No rectal bleeding noted.
Musculoskeletal: Left foot: clean sutures noted, no bleeding or evidence of necrosis tissue around the wound. .
Skin: Negative Rash
Neuro: Awake, Alert, Oriented, AO x 3 and Nonfocal/Grossly Intact
Psych: Calm
#Right great toe cellulitis /gangrene with chronic wound /diabetic wound
s/p s/p hallux amputation and 1st met resection by Dr Reyna on 11/17. No complications reported
Partial closure , and to do final closure today.
Patient is not septic or toxic looking.� No fever.� No leukocytosis.�WBC at 8. Elevated ESR and CRP
Empiric IV antibiotics.
-Order x-ray right foot showed bony lucencies of the proximal distal phalanx, osteomyelitis cannot be excluded. Soft tissue changes of the great toe likely due to the known nonhealing wound.
-IV vancomycin, IV Zosyn
Pain in foot is less, added Tylenol & Motrin.
Appreciate podiatry and ID input/help
#DM 2/diabetic neuropathy� hx of uncontrolled DM in the past
Last HgbA1c at 8.7
-Accu-Cheks with SSI
-2200 diet
-Holding Trulicity, Jardiance, metformin
-Change Lantus to 55 units at bedtime. Patient is normally on 55 units at bedtime
#Acute transaminitis unclear etiology likely reactive
Liver enzymes are coming down
AST 120, ALT 165, alk phos 129 on admission.
-Hold statin 40 mg at bedtime
-Lipid panel showed triglyceride 106, total cholesterol 97, LDL 53, HDL 23.
# Mild acute blood loss anemia.
#HTN�benign
Continue lisinopril 2.5 mg daily
# Mild acute blood loss anemia
no hypotension or dizziness.
#HLD
Hold statin due to transaminitis
#CAD/[place] status post cardiac stent 2013
�-pt advised� not take nitro with Sildenafil
-Continue aspirin 81 mg daily, hold current statin due to transaminitis continue lisinopril
#Sleep apnea
-CPAP patient may use own
#Erectile dysfunction
Hold sildenafil
# DVT prophylaxis
subcu Lovenox.
Total time spent to see the patient, examine the patient on the floor, review data and lab results, discuss treatment plan with patient and nursing staff around 55 minutes
Anticipated Discharge: 24 - 48 hours
Subjective/Interval History
-
Date of Service: November 19, 2023
No chest pain
No sob
No fevers
Objective Data
-
Labs:
Laboratory Results
11/19/23
08:12
WBC Pending
Hgb Pending
Hct Pending
Plt Count Pending
Sodium Pending
Potassium Pending
Chloride Pending
Carbon Dioxide Pending
BUN Pending
Creatinine Pending
Glucose Pending
Calcium Pending
Total Bilirubin Pending
AST Pending
ALT Pending
Alkaline Phosphatase Pending
Vital Signs:
Vital Signs
Temp Pulse Resp BP Pulse Ox
98.0 F 83 20 155/87 98
11/19/23 08:10 11/19/23 08:10 11/19/23 08:10 11/19/23 08:10 11/19/23 08:10
I&O
11/18/23 11/19/23 11/20/23
06:59 06:59 06:59
Intake Total 1630 / 1630
Output Total 2375 / 2375 1200 / 1200
Balance -745 / -745 -1200 / -1200
[2023-11-19 09:06] LABS: ALT (SGPT) 72 U/L (0-50); AST (SGOT) 25 U/L (17-59); Albumin 2.7 g/dl (3.5-5.0); Alkaline Phosphatase 94 U/L (38-126); Blood Urea Nitrogen 14 mg/dl (9-20); Calcium 8.4 mg/dl (8.4-10.2); Carbon Dioxide 30 mmol/L (22-30); Chloride 102 mmol/L (98-107); Estimated Creatinine Clearance 117 ml/min; Glucose 123 mg/dl (70-99); Potassium 4.6 mmol/L (3.5-5.1); Sodium 137 mmol/L (135-145); Total Bilirubin 0.4 mg/dl (0.2-1.3); Total Protein 5.4 g/dl (6.3-8.2); eGFR > 60.00
--- NOTE | 2023-11-19 09:12 | PHA.VAN.FU ---
Vancomycin Assessment / Plan
- Assessment
Renal Function: Stable
WBC's are: WNL
In the past 24 hrs, patient has been: Afebrile
Concomitant Antimicrobials: piperacillin/tazobactam
- Dosing Plan
Continue: Vanc 1500mg Q12H
- Monitoring Plan
Peak Level: 11/19 21:00
Trough Level: 11/20 05:30
Monitoring Comments: levels to be drawn after 5th maintenanc dose
- Follow Up
Pharmacy will continue to follow.
Vancomycin Follow UP
- -
Patient Age: 68
Patient Sex: Male
Vancomycin Day #: 4
Indication: Diabetic Foot
Requesting Provider: Leonard Lynn
Pertinent Antimicrobial Allergies:
no pertinent antibiotic allergies
Height / Weight:
Height 5 ft 10 in
Actual Weight 95.339 kg
Pertinent Past Medical History: BMI ~30, DM2
- Vital Signs / Lab Results
Temp Pulse Resp BP Pulse Ox
98.0 F 83 20 155/87 98
11/19/23 08:10 11/19/23 08:10 11/19/23 08:10 11/19/23 08:10 11/19/23 08:10
Lab Results - Hematology
11/16/23 11/17/23 11/18/23
15:46 07:14 05:30
WBC 10.2 8.5 10.1
11/19/23
08:12
WBC 8.0
Lab Results - Chemistry
11/16/23 11/17/23 11/18/23
15:46 07:14 05:30
BUN 20 14 19
Creatinine 0.9 0.7 0.8
Estimated Creat Clear 117 102
Albumin 3.0 L 2.8 L 2.6 L
11/19/23
08:12
BUN 14
Creatinine 0.7
Estimated Creat Clear 117
Albumin 2.7 L
Microbiology Results
11/16/23 15:46 Blood Culture - Preliminary
Blood/Venous No Growth in 48 hours- Final report to follow
11/17/23 14:00 Anaerobic Culture - Preliminary
Foot - Left Culture pending. Anaerobic cultures are examined after 3
days incubation. Additional information to follow.
11/17/23 14:00 Wound Culture - Preliminary
Foot - Left Gram Stain - Preliminary
11/17/23 14:15 Tissue Culture - Preliminary
Bone Gram Stain - Preliminary
11/16/23 21:58 MRSA Screen - Final
Nose Staph aureus MRSA
[2023-11-19] MEDS: ZESTRIL 2.5 MG PO (10:39)
[2023-11-19 10:40] LABS: Glucose - Point of Care 216 mg/dl (70-99)
[2023-11-19] MEDS: FLUSH (NSS) 1 FLUSH IV ×3 (10:40→18:02)
[2023-11-19] MEDS: NOVOLOG FLEXPEN-HIGH RESISTANCE 4 UNITS SC ×2 (10:41→14:31)
--- NOTE | 2023-11-19 13:12 | W.PN.ID1 ---
Date of Service
Date of Service: November 19, 2023
Today's Communication
Continue abx. Await final susceptibility data to guide further antibiotic selection.
Assessment / Plan
Left hallux gangrene
- S/p hallux amp 11/17/2023
Left foot cellulitis / complicated SSTI
Elevated ESR and CRP
Transaminitis
HTN
DM
Dyslipidemia
CAD; Hx [place]
JEREMIAS
Recommendations:
Continue with Zosyn and vancomycin. Monitor Vanco levels closely.
Patient s/p hallux amp.
-Currently awaiting final culture data, but pathology shows no residual osteo, indicating surgical cure.
Tight glucose control.
����������������������������������������������������������
Chief Complaint
-: Other (Left hallux osteomyelitis)
Vital Signs / Physical Exam
Vital Signs
Vital Signs
Temp Pulse Resp BP Pulse Ox
98.0 F 83 20 155/87 98
11/19/23 08:10 11/19/23 08:10 11/19/23 08:10 11/19/23 08:10 11/19/23 08:10
Objective Data
Lab Data
Lab Results
11/19/23 08:12
11/19/23 08:12
ESR 68 mm/hour (0-20) H 11/16/23 16:57
Estimated Creat Clear 117 ml/min 11/19/23 08:12
Total Bilirubin 0.4 mg/dl (0.2-1.3) 11/19/23 08:12
AST 25 U/L (17-59) 11/19/23 08:12
ALT 72 U/L (0-50) H 11/19/23 08:12
Alkaline Phosphatase 94 U/L (38-126) 11/19/23 08:12
C-Reactive Protein 140.50 mg/L (0.0-10.00) H 11/16/23 16:57
Most recent labs reviewed.
Micro Results:
11/17/23 14:15 Tissue Culture - Preliminary
Bone Gram negative bacilli
Staph aureus MRSA
Pseudomonas species
Gram Stain - Preliminary
11/16/23 15:46 Blood Culture - Preliminary
Blood/Venous No Growth in 48 hours- Final report to follow
11/17/23 14:00 Anaerobic Culture - Preliminary
Foot - Left Culture pending. Anaerobic cultures are examined after 3
days incubation. Additional information to follow.
11/17/23 14:00 Wound Culture - Preliminary
Foot - Left Gram Stain - Preliminary
11/16/23 21:58 MRSA Screen - Final
Nose Staph aureus MRSA
Imaging:
11/16/2023 X-ray left foot: No acute fracture, dislocation or subluxation. No periosteal reaction or erosive changes. No radiopaque foreign bodies noted. Osteomyelitis cannot be excluded.
--- NOTE | 2023-11-19 13:46 | W.PN.UPDATE ---
Update Note
Progress Note Update
pt seen at bedside
no c/o fcns
no pain
wound closed with 3.0 prolene sterilly
foot was prepped with betadine prior to closeure
sterile bandages applied
nwb left foot
abx per Id
stable for d/c per podiatry
[2023-11-19 14:29] LABS: Glucose - Point of Care 226 mg/dl (70-99)
[2023-11-19 16:40] VITALS: BP 126/71
[2023-11-19 17:18] LABS: Glucose - Point of Care 75 mg/dl (70-99)
[2023-11-19] MEDS: NOVOLOG FLEXPEN-HIGH RESISTANCE 1 UNITS SC (18:03)
[2023-11-19] MEDS: ASPIR LOW (ENTERIC COATED) 81 MG PO (18:05)
[2023-11-19] MEDS: LOVENOX 40 MG SC (18:05)
[2023-11-19 21:22] LABS: Vancomycin Peak 28.3 ug/ml (18-26)
[2023-11-19 21:39] LABS: Glucose - Point of Care 183 mg/dl (70-99)
[2023-11-19] MEDS: LANTUS 0.299999999999999989 UNITS SC (22:13)
[2023-11-19] MEDS: XALATAN OPHTHALMIC SOLUTION 1 DROP BOTH EYES (22:20)
[2023-11-19 23:21] VITALS: BP 125/69
[2023-11-20] MEDS: ZOSYN 50 IV ×4 (02:34→20:50)
[2023-11-20 06:02] LABS: Vancomycin Trough 13.5 ug/ml (5-20)
--- NOTE | 2023-11-20 06:15 | PTCARENOTE ---
Spoke with Felicia Salgado regarding patients Vancomycin Peak 28.3 and Trough results 13.5. Per [employer] T[employer] SEPARATOR OPERATOR Felicia Diego Ok to administer 6AM dose of Vancomycin , as she confirmed with Pharmacist as well.
[2023-11-20] MEDS: VANCOCIN 300 MG IV (06:21)
[2023-11-20] MEDS: VANCOCIN 300 ML IV (06:21)
[2023-11-20 08:29] LABS: Glucose - Point of Care 138 mg/dl (70-99)
[2023-11-20 08:30] VITALS: BP 152/81
[2023-11-20] MEDS: ZESTRIL 2.5 MG PO (08:48)
[2023-11-20] MEDS: NOVOLOG FLEXPEN-HIGH RESISTANCE 1 UNITS SC (08:48)
[2023-11-20] MEDS: FLUSH (NSS) 1 FLUSH IV (08:49)
--- NOTE | 2023-11-20 08:55 | W.PN.POD ---
Today's Communication
Today's Communication
s/p hallux amp and 1st met resection---stable
resolving infection, + mrsa bone and wound/+ pseudamonas---prox bone clean of osteo
rec couple weeks abx upon dc for soft tissue infetion
nwb left foot
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
fu 3-5 days
pt to call office [phone]
stable for dc
will sign off
Assessment / Plan
-
ulcer/dm left hallux---probable osteo, xrays pending
will need amp hallux and probably 1st met head resection with delayed closure
start abx, xrays order
npo after midnight tonight
surgery tomorrow
rec Id consult
Subjective
Chief Complaint
pt seen at bedside
no c/o pain f/exchange consultant
dressing cdi
Subjective
vasc intact
derm mild edema and cellulitis
sutures intact, edges viable
no pus, no odor
Objective
Temp Pulse Resp BP Pulse Ox
98.3 F 86 18 152/81 98
11/20/23 08:30 11/20/23 08:48 11/20/23 08:30 11/20/23 08:48 11/20/23 08:30
11/19/23 08:12
11/19/23 08:12
Vital Signs and Lab results were reviewed.
--- NOTE | 2023-11-20 09:49 | W.PN.HOSP.TC ---
Today's Communication/Plan
-
.
Assessment / Plan
Assessment / Plan
Physical Exam
-
General: Well Developed and No Apparent Distress
HEENT: Normocephalic, Atraumatic, Moist Mucous Membranes.
Respiratory: Clear to Auscultation
Cardiac: Regular Rhythm and S1/S2;
GI: Soft, Nontender, Nondistended and Normal Bowel Sounds.
Rectal: No rectal bleeding noted.
Musculoskeletal: Left foot: clean sutures noted, no bleeding or evidence of necrosis tissue around the wound. .
Skin: Negative Rash
Neuro: Awake, Alert, Oriented, AO x 3 and Nonfocal/Grossly Intact
Psych: Calm
#Right great toe cellulitis /gangrene with chronic wound /diabetic wound
s/p s/p hallux amputation and 1st met resection by Dr Reyna on 11/17. No complications reported
Partial closure , final closure 11/19
Patient is not septic or toxic looking.� No fever.� No leukocytosis.�WBC at 8. Elevated ESR and CRP
IV antibiotics. -IV vancomycin, IV Zosyn. Wound culture is MRSA and pseudomonas.
-Order x-ray right foot showed bony lucencies of the proximal distal phalanx, osteomyelitis cannot be excluded. Soft tissue changes of the great toe likely due to the known nonhealing wound.
Pain in foot is not present, added Tylenol & Motrin.
Non Weight bearing left foot.
Appreciate podiatry and ID input/help
#DM 2/diabetic neuropathy� hx of uncontrolled DM in the past
Last HgbA1c at 8.7
-Accu-Cheks with SSI
-2200 diet
-Holding Trulicity, Jardiance, metformin
-Change Lantus to 55 units at bedtime. Patient is normally on 55 units at bedtime
#Acute transaminitis unclear etiology likely reactive
Liver enzymes are coming down
AST 120, ALT 165, alk phos 129 on admission.
-Hold statin 40 mg at bedtime
-Lipid panel showed triglyceride 106, total cholesterol 97, LDL 53, HDL 23.
# Mild acute blood loss anemia.
#HTN�benign
Continue lisinopril 2.5 mg daily
# Mild acute blood loss anemia
no hypotension or dizziness.
#HLD
Hold statin due to transaminitis
#CAD/UT status post cardiac stent 2013
�-pt advised� not take nitro with Sildenafil
-Continue aspirin 81 mg daily, hold current statin due to transaminitis continue lisinopril
#Sleep apnea
-CPAP patient may use own
#Erectile dysfunction
Hold sildenafil
# DVT prophylaxis
subcu Lovenox.
Total time spent to see the patient, examine the patient on the floor, review data and lab results, discuss treatment plan with patient and nursing staff around 55 minutes
Anticipated Discharge: Within 24 hours
Subjective/Interval History
-
Date of Service: November 20, 2023
No chest pain
No sob
No abd pain
No pain in the foot
Objective Data
-
Vital Signs:
Vital Signs
Temp Pulse Resp BP Pulse Ox
98.3 F 86 18 152/81 98
11/20/23 08:30 11/20/23 08:48 11/20/23 08:30 11/20/23 08:48 11/20/23 08:30
I&O
11/19/23 11/20/23 11/21/23
06:59 06:59 06:59
Intake Total 600 / 600
Output Total 1200 / 1200 900 / 900
Balance -1200 / -1200 -300 / -300
--- NOTE | 2023-11-20 10:04 | PHA.VAN.FU ---
Vancomycin Assessment / Plan
- Assessment
Renal Function: Stable
WBC's are: WNL
In the past 24 hrs, patient has been: Afebrile
Concomitant Antimicrobials: piperacillin/tazobactam
- Assessment - Therapeutic Drug Monitoring
Extrapolated Cmax (mcg/mL): 32
Peak level was drawn: Appropriately
Extrapolated Cmin (mcg/mL): 12.7
Trough Drawn: Appropriately
Levels were drawn: At steady state
Calculated AUC (mcg*h/mL): 505
Calculated ke: 0.0881
Calculated half life (H): 7.9
Calculated Vd (L): 67.35
Calculated Vanc CL (ml/min): 98.9
- Dosing Plan
Continue: vancomycin 1500 mg q12h
- Monitoring Plan
Level(s) appropriate: Recheck trough at minimum of weekly intervals, Repeat sooner for changes in renal function or clinical status
- Follow Up
Pharmacy will continue to follow.
Vancomycin Follow UP
- -
Patient Age: 68
Patient Sex: Male
Vancomycin Day #: 5
Indication: Diabetic Foot
Requesting Provider: Leonard Lynn
Pertinent Antimicrobial Allergies:
no pertinent antibiotic allergies
Height / Weight:
Height 5 ft 10 in
Actual Weight 95.339 kg
Pertinent Past Medical History: BMI ~30, DM2
- Vital Signs / Lab Results
Temp Pulse Resp BP Pulse Ox
98.3 F 86 18 152/81 98
11/20/23 08:30 11/20/23 08:48 11/20/23 08:30 11/20/23 08:48 11/20/23 08:30
Lab Results - Hematology
11/18/23 11/19/23
05:30 08:12
WBC 10.1 8.0
Lab Results - Chemistry
11/18/23 11/19/23
05:30 08:12
BUN 19 14
Creatinine 0.8 0.7
Estimated Creat Clear 102 117
Albumin 2.6 L 2.7 L
Microbiology Results
11/17/23 14:15 Tissue Culture - Preliminary
Bone Staph aureus MRSA
Gram negative bacilli
Pseudomonas species
Gram Stain - Preliminary
11/16/23 15:46 Blood Culture - Preliminary
Blood/Venous No Growth in 72 hours- Final report to follow
11/17/23 14:00 Wound Culture - Preliminary
Foot - Left Staph aureus MRSA
Gram Stain - Preliminary
11/17/23 14:00 Anaerobic Culture - Preliminary
Foot - Left Culture pending. Anaerobic cultures are examined after 3
days incubation. Additional information to follow.
11/16/23 21:58 MRSA Screen - Final
Nose Staph aureus MRSA
Therapeutic Drug Monitoring
Vancomycin Peak 28.3 ug/ml (18-26) H 11/19/23 20:55
Vancomycin Trough 13.5 ug/ml (5-20) 11/20/23 05:19
[2023-11-20 12:19] LABS: Glucose - Point of Care 151 mg/dl (70-99)
--- NOTE | 2023-11-20 12:24 | W.PN.ID1 ---
Date of Service
Date of Service: November 20, 2023
Today's Communication
Continue with Zosyn
Switched vancomycin to doxycycline
Assessment / Plan
Left hallux gangrene
- S/p hallux amp 11/17/2023
Left foot cellulitis / complicated SSTI
Elevated ESR and CRP
Transaminitis
HTN
DM
Dyslipidemia
CAD; Hx [place]
JEREMIAS
Recommendations:
Continue with Zosyn
Switched vancomycin to doxycycline
Patient s/p hallux amp.
-Currently awaiting final culture data, but pathology shows no residual osteo, indicating surgical cure.
Tight glucose control.
����������������������������������������������������������
Chief Complaint
-: Other (Left hallux osteomyelitis)
Subjective / Review of Systems
afebrile
bp stable
vanc tr 13.5
glucose mild hyperglycemia
awaiting cultures
Vital Signs / Physical Exam
Vital Signs
Vital Signs
Temp Pulse Resp BP Pulse Ox
98.3 F 86 18 152/81 98
11/20/23 08:30 11/20/23 08:48 11/20/23 08:30 11/20/23 08:48 11/20/23 08:30
Physical Exam
Constitutional: No Acute Distress
Cardiovascular: Regular Rate and S1/S2; Negative Murmur or Rub
Pulmonary: Clear and Symmetric; Negative Wheezes or Rales
Gastrointestinal: Soft, Non Tender, Non Distended and Normal Bowel Sounds
Skin: Warm and Dry; Negative Rash or Jaundice
Wound: Other (dressing clean, dry, intact)
Objective Data
Lab Data
Lab Results
11/19/23 08:12
11/19/23 08:12
ESR 68 mm/hour (0-20) H 11/16/23 16:57
Estimated Creat Clear 117 ml/min 11/19/23 08:12
Total Bilirubin 0.4 mg/dl (0.2-1.3) 11/19/23 08:12
AST 25 U/L (17-59) 11/19/23 08:12
ALT 72 U/L (0-50) H 11/19/23 08:12
Alkaline Phosphatase 94 U/L (38-126) 11/19/23 08:12
C-Reactive Protein 140.50 mg/L (0.0-10.00) H 11/16/23 16:57
Most recent labs reviewed.
Micro Results:
11/17/23 14:00 Anaerobic Culture - Preliminary
Foot - Left Culture pending. Anaerobic cultures are examined after 3
days incubation. Additional information to follow.
11/17/23 14:15 Tissue Culture - Preliminary
Bone Staph aureus MRSA
Gram negative bacilli
Pseudomonas species
Gram Stain - Preliminary
11/16/23 15:46 Blood Culture - Preliminary
Blood/Venous No Growth in 72 hours- Final report to follow
11/17/23 14:00 Wound Culture - Preliminary
Foot - Left Staph aureus MRSA
Gram Stain - Preliminary
11/16/23 21:58 MRSA Screen - Final
Nose Staph aureus MRSA
Imaging:
11/16/2023 X-ray left foot: No acute fracture, dislocation or subluxation. No periosteal reaction or erosive changes. No radiopaque foreign bodies noted. Osteomyelitis cannot be excluded.
[2023-11-20] MEDS: NOVOLOG FLEXPEN-HIGH RESISTANCE 2 UNITS SC (13:10)
[2023-11-20] MEDS: VIBRAMYCIN 100 MG PO ×2 (13:10→20:50)
[2023-11-20 15:00] VITALS: BP 149/75
[2023-11-20 16:28] LABS: Glucose - Point of Care 225 mg/dl (70-99)
[2023-11-20] MEDS: LOVENOX 40 MG SC (17:40)
[2023-11-20] MEDS: ASPIR LOW (ENTERIC COATED) 81 MG PO (17:40)
[2023-11-20] MEDS: NOVOLOG FLEXPEN-HIGH RESISTANCE 4 UNITS SC (17:40)
[2023-11-20 21:38] LABS: Glucose - Point of Care 119 mg/dl (70-99)
[2023-11-20] MEDS: XALATAN OPHTHALMIC SOLUTION 1 DROP BOTH EYES (21:41)
[2023-11-20] MEDS: LANTUS 0.299999999999999989 UNITS SC (21:41)
[2023-11-20 23:25] VITALS: BP 137/72
[2023-11-21] MEDS: ZOSYN 50 IV ×2 (02:53→08:47)
[2023-11-21 06:48] LABS: Hematocrit 39.2 % (39.0-52.0); Hemoglobin 12.8 g/dL (13.0-18.0); Mean Corp Hgb Conc. 32.7 g/dL (33.0-37.0); Mean Corpuscular Hgb 30.1 pg (27.0-31.0); Mean Corpuscular Volume 92.2 fL (80.0-94.0); Mean Platelet Volume 8.4 fL (7.4-10.4); Platelet Count 470 10^3/uL (130-400); Red Blood Cell Count 4.25 10^6/uL (4.70-6.10); Red Cell Dist. Width 13.1 % (11.5-14.5); White Blood Cell Count 6.9 10^3/uL (4.8-10.8)
[2023-11-21 07:03] LABS: Blood Urea Nitrogen 12 mg/dl (9-20); Calcium 8.5 mg/dl (8.4-10.2); Carbon Dioxide 28 mmol/L (22-30); Chloride 106 mmol/L (98-107); Estimated Creatinine Clearance 102 ml/min; Glucose 152 mg/dl (70-99); Potassium 4.2 mmol/L (3.5-5.1); Sodium 136 mmol/L (135-145); eGFR > 60.00
[2023-11-21 08:34] LABS: Glucose - Point of Care 167 mg/dl (70-99)
[2023-11-21 08:35] VITALS: BP 139/80
[2023-11-21] MEDS: NOVOLOG FLEXPEN-HIGH RESISTANCE 2 UNITS SC ×2 (08:42→13:23)
[2023-11-21] MEDS: VIBRAMYCIN 100 MG PO (08:46)
[2023-11-21] MEDS: FLUSH (NSS) 1 FLUSH IV (08:47)
[2023-11-21] MEDS: ZESTRIL 2.5 MG PO (08:47)
--- NOTE | 2023-11-21 09:42 | W.PN.HOSP.TC ---
Addendum entered and electronically signed by Cassi Epstein MD 11/21/23 13:32:
Addendum
Discussed with ID Dr.
Patient can go home on oral antibiotics
Discussed instructions with patient
Total discharge time spent to see the patient, examine the patient on the floor, review data and lab results, discuss discharge plan with patient and nursing staff around 65 minutes.
Original Note:
Today's Communication/Plan
-
dc planning
Assessment / Plan
Assessment / Plan
Physical Exam
-
General: Well Developed and No Apparent Distress
HEENT: Normocephalic, Atraumatic, Moist Mucous Membranes.
Respiratory: Clear to Auscultation
Cardiac: Regular Rhythm and S1/S2;
GI: Soft, Nontender, Nondistended and Normal Bowel Sounds.
Rectal: No rectal bleeding noted.
Musculoskeletal: Left foot: clean sutures noted, no bleeding or evidence of necrosis tissue around the wound. .
Skin: Negative Rash
Neuro: Awake, Alert, Oriented, AO x 3 and Nonfocal/Grossly Intact
Psych: Calm
#Right great toe cellulitis /gangrene with chronic wound /diabetic wound
s/p s/p hallux amputation and 1st met resection by Dr Reyna on 11/17. No complications reported
Partial closure , final closure 11/19
Patient is not septic or toxic looking.� No fever.� No leukocytosis.�WBC at 8. Elevated ESR and CRP
s/p V vancomycin, IV Zosyn. Wound culture is MRSA, Enterobacter, Stenotrophomonas. Changed to Doxycycline & Zosyn.
-Order x-ray right foot showed bony lucencies of the proximal distal phalanx, osteomyelitis cannot be excluded. Soft tissue changes of the great toe likely due to the known nonhealing wound.
Pain in foot is not present, added Tylenol & Motrin.
Non Weight bearing left foot.
Appreciate podiatry and ID input/help
#DM 2/diabetic neuropathy� hx of uncontrolled DM in the past
Last HgbA1c at 8.7
-Accu-Cheks with SSI
-0 diet
-Holding Trulicity, Jardiance, metformin
-Increased Lantus to 40 units at bedtime to better control blood glucose. Patient is normally on 55 units at bedtime
#Acute transaminitis unclear etiology likely reactive
Liver enzymes are coming down
AST 120, ALT 165, alk phos 129 on admission.
-Hold statin 40 mg at bedtime
-Lipid panel showed triglyceride 106, total cholesterol 97, LDL 53, HDL 23.
# Mild acute blood loss anemia.
#HTN�benign
Continue lisinopril 2.5 mg daily
# Mild acute blood loss anemia
no hypotension or dizziness.
#HLD
Hold statin due to transaminitis
#CAD/[place] status post cardiac stent 2013
�-pt advised� not take nitro with Sildenafil
-Continue aspirin 81 mg daily, hold current statin due to transaminitis continue lisinopril
#Sleep apnea
-CPAP patient may use own
#Erectile dysfunction
Hold sildenafil
# DVT prophylaxis
subcu Lovenox.
Total time spent to see the patient, examine the patient on the floor, review data and lab results, discuss treatment plan with patient and nursing staff around 55 minutes
Anticipated Discharge: Within 24 hours
Subjective/Interval History
-
Date of Service: November 21, 2023
No complaints
Objective Data
-
Labs:
Laboratory Results
11/21/23
05:49
WBC 6.9
Hgb 12.8 L
Hct 39.2
Plt Count 470 H
Sodium 136
Potassium 4.2
Chloride 106
Carbon Dioxide 28
BUN 12
Creatinine 0.8
Glucose 152 H
Calcium 8.5
Vital Signs:
Vital Signs
Temp Pulse Resp BP Pulse Ox
97.6 F 87 20 139/80 100
11/21/23 08:35 11/21/23 08:35 11/21/23 08:35 11/21/23 08:35 11/21/23 08:35
I&O
11/20/23 11/21/23 11/22/23
06:59 06:59 06:59
Intake Total 600 / 600 1230 / 1230 50 / 50
Output Total 900 / 900 575 / 575
Balance -300 / -300 655 / 655 50 / 50
--- NOTE | 2023-11-21 12:23 | W.PN.UPDATE ---
Update Note
Progress Note Update
ID/Sensi back
risk of hypoglycemia with levaquin >> risk of hyperkalemia with low dose lisinopril and normal kidneys
switched to bactrim/doxycyclin x10 more days
follow up with podiatry
[2023-11-21 12:28] LABS: Glucose - Point of Care 197 mg/dl (70-99)
--- NOTE | 2023-11-21 12:49 | W.DCSUMMARY ---
Discharge Summary
Discharge Data
Date of Admission: 11/16/23
Date of Discharge: 11/21/23
-
Pending Results: No
Hospital Course
68 years old male who presented with osteomyelitis of the right big toe. Patient was not septic or toxic. He was diagnosed with right great toe cellulitis, gangrenous wound. Patient had history of diabetes and neuropathy. Patient was evaluated
by endoscopy technician and infectious diseases [facility] consultant. Patient underwent right big toe amputation and first metatarsal resection by Dr. Reyna on 11/17/23. No complications reported. He initially had partial closure then subsequent final closure on
11/19/23 after confirming good healing of the wound. Patient did not have pain or discomfort. He was given Tylenol as needed. He received intravenous antibiotics. Wound culture showed multiple organisms. Biopsy of remaining bone did not show
osteomyelitis. Infectious disease oracle ebs consultant recommended to continue oral antibiotic for 10 more days post discharge including doxycycline and Bactrim. Patient was advised to hold lisinopril while on Bactrim to avoid risk of hyperkalemia. Patient
did not have significant high blood pressure, he was given amlodipine prescription while off lisinopril. Patient remained hemodynamically stable. Wound care instructions were given to the patient including nonweightbearing status. Patient
verbalized understanding to all instruction including ambulation and potential side effects of antibiotics. Patient was discharged in a stable condition.
Discharge Plan
-
Patient Disposition: Home (Routine Discharge)
Discharge Diagnosis/Procedures: Right big toe osteomyelitis/gangrenous wound status post amputation of the big toe and resection of first metatarsal bone by Dr. Reyna on 11/17/23.
Infectious diseases doctor recommended antibiotics including
Doxycycline: Initial side effect photosensitivity, avoid direct sun exposure
Bactrim: Show side effect include high potassium and kidney insufficiency. Avoid use of lisinopril while on Bactrim.
We gave you prescription for amlodipine( blood pressure medicine) to use until you finish Bactrim and resume lisinopril intake.
Diet: As tolerated and Diabetic, Carb Controlled
Activity: Do not bear weight L leg
Driving Restrictions: Not until seen by your Dr
Referrals:
Edgar Sethi MD [Family Provider] - in one to two weeks
Lamberto Reyna DPM [Specified Professional Personl] - in less than 1 week
Prescriptions:
New
doxycycline hyclate 100 mg Capsule
100 mg PO Q12 Qty: 20 0RF
sulfamethoxazole-trimethoprim 800-160 mg Tablet
1 tab PO BID Qty: 20 0RF
amlodipine 5 mg tablet
5 mg PO DAILY Qty: 10 0RF
Continued
glucosamine-chondroitin [Osteo Bi-Flex] 250-200 mg Tablet
2 tab PO BID@0800,1700 Qty: 0
atorvastatin 40 MG tablet
40 mg PO QPM Qty: 90 3RF
multivitamin Tablet
1 tab PO DAILY
latanoprost 0.005 % drops
1 drp BOTH EYES HS
calcium carbonate-vitamin D3 [Calcium 600 + D(3)] 600 mg-5 mcg (200 unit) Tablet
1 tab PO QPM
sildenafil 100 mg tablet
100 mg PO DAILY PRN (Reason: ed)
metformin 1,000 mg tablet
1,000 mg PO BID@0800,1700
nitroglycerin 0.4 mg tablet, sublingual
0.4 mg sublingual [id number] PRN (Reason: chest pain)
insulin glargine [Lantus Solostar U-100 Insulin] 100 unit/mL (3 mL) insulin pen
55 unit SC HS
Jardiance 25 mg tablet
25 mg PO DAILY
Trulicity 4.5 mg/0.5 mL pen injector
4.5 mg SC TU
aspirin 81 MG tablet,delayed release (DR/EC)
81 mg PO QPM
Held
lisinopril 2.5 MG tablet
2.5 mg PO DAILY Qty: 90 3RF
Hold Instructions: Resume on 12/02/23.
Discharge Orders:
Discharge Patient (As Directed); Ordered 11/21/23
Ordered By: Cassi Epstein
[2023-11-21] MEDS: BACTRIM DS 800 MG/160 MG 1 TABLET PO (13:22)
[2023-11-21] MEDS: PREVNAR 20 0.5 ML IM (13:58)
[2023-11-21] MEDS: FLUZONE HIGH-DOSE QUAD 2023-24 0.699999999999999956 ML IM (14:00)
--- NOTE | 2023-11-21 14:00 | CM ---
CM following re: d/c planning.
CM met with pt and spouse at bedside to discuss d/c planning.
will transport pt home today.
We discussed VN, pt and would like services, including PT. They are agreeable to referral to [facility].
TT to MD.
She also inquired about getting a knee scooter / mobility scooter.
CM provided her with [employer]; unable to reach them today due to offices being closed.
Will need rx, uncertain if Medicare will cover this item.
CM also provided private pay resource of [employer] to purchase outright or rent weekly if it is not covered.
Additionally, home PT can assist with this also.
Goal: home with [facility]. PCP is Dr. Sethi.
== END 2023-11-21 14:52 | disposition home health service (06) | DRG 256 ==
LOC: 4 WEST ACU 17:51
PROVIDERS: Clinical Nurse Specialist Family Health; Emergency Medicine; Internal Medicine Infectious Disease; Physician Assistant Medical; ADMITTING PHYSICIAN Internal Medicine; CONSULT PHYSICIAN Podiatrist Foot Surgery; CONSULT PHYSICIAN Student in an Organized Health Care Education/Training Program; EMERGENCY PHYSICIAN Student in an Organized Health Care Education/Training Program; FAMILY PHYSICIAN Family Medicine
PROC: 0Y6Q0Z0 Detachment at Left 1st Toe, Complete, Open Approach (ICD-10-PCS; 2023-11-17)
DX: E11.52 Type 2 diabetes mellitus with diabetic peripheral angiopathy with gangrene (principal); D62 Acute posthemorrhagic anemia; M86.8X7 Other osteomyelitis, ankle and foot; L03.031 Cellulitis of right toe; I10 Essential (primary) hypertension; E11.40 Type 2 diabetes mellitus with diabetic neuropathy, unspecified; E66.9 Obesity, unspecified; E11.69 Type 2 diabetes mellitus with other specified complication; I25.2 Old myocardial infarction; Z79.4 Long term (current) use of insulin; Z68.30 Body mass index [BMI] 30.0-30.9, adult
CPT/HCPCS: 88304; 88305; 88311; 73630; 80048; 80053; 80061; 80202; 82962; 83036; 85025; 85027; 85652; 86140; 87040; 87070; 87075; 87076; 87077; 87147; 87176; 87185; 87186; 87205; 90662; 90677; 97116; 97162; 97166; 99284; G0008; G0009

== ENCOUNTER → 2024-01-06 08:26 | Outpatient (REF) | payer MEDICARE, OTHER, SELFPAY | LOC: RAD 08:26 | PROVIDERS: ATTENDING PHYSICIAN Podiatrist Foot Surgery; FAMILY PHYSICIAN Family Medicine | DX: M86.179 Other acute osteomyelitis, unspecified ankle and foot (principal) | CPT/HCPCS: 78315; A9503 ==

== ENCOUNTER → 2024-01-10 06:50 | Outpatient (REF) | payer MEDICARE, OTHER, SELFPAY | LOC: RAD 06:50 | PROVIDERS: ATTENDING PHYSICIAN Podiatrist Foot Surgery; FAMILY PHYSICIAN Family Medicine | DX: M86.179 Other acute osteomyelitis, unspecified ankle and foot (principal) | CPT/HCPCS: 78803; A9569 ==

== ENCOUNTER → 2024-01-13 11:31 | Outpatient (REF) | payer MEDICARE, OTHER, SELFPAY | LOC: RCS 11:31 | PROVIDERS: ATTENDING PHYSICIAN Podiatrist Foot Surgery; FAMILY PHYSICIAN Family Medicine | DX: M86.179 Other acute osteomyelitis, unspecified ankle and foot (principal) | CPT/HCPCS: 93005 ==

== ENCOUNTER → 2024-01-18 15:58 | Outpatient (REF) | payer MEDICARE, OTHER, SELFPAY | LOC: CLAB 15:58 | PROVIDERS: ATTENDING PHYSICIAN Podiatrist Foot Surgery | DX: M86.9 Osteomyelitis, unspecified (principal) | CPT/HCPCS: 88304; 88311; 87070; 87075; 87147; 87176; 87186; 87205 ==

== ENCOUNTER → 2024-01-27 12:26 | Outpatient (REF) | payer MEDICARE, OTHER, SELFPAY ==
[2024-01-27 12:52] VITALS: BP 154/92; BP_SYST 101
== END ==
LOC: RADI 12:26
PROVIDERS: ATTENDING PHYSICIAN Internal Medicine Infectious Disease
DX: M86.171 Other acute osteomyelitis, right ankle and foot (principal)
CPT/HCPCS: 36573; C1751

== ENCOUNTER 2024-01-27 13:39 | Outpatient (RCR) | payer MEDICARE, OTHER, SELFPAY ==
[2024-01-27 13:50] VITALS: BP 116/77
[2024-01-27] MEDS: CUBICIN 118 MG IV (14:10)
== END 2024-01-28 10:06 | disposition home or self-care (01) ==
LOC: OID 13:39
PROVIDERS: ATTENDING PHYSICIAN Internal Medicine Infectious Disease; FAMILY PHYSICIAN Family Medicine
DX: M86.9 Osteomyelitis, unspecified (principal)
CPT/HCPCS: 36573; 96365; C1751; J0878

== ENCOUNTER → 2024-02-28 14:15 | Outpatient (REF) | payer MEDICARE, OTHER, SELFPAY ==
[2024-02-28 14:34] LABS: % Basophils 0.9 % (0-2); % Eosinophils 10.8 % (0-6); % Immature Granulocytes 0.8 % (0-0.5); % Lymphocytes 20.4 % (20.5-51.1); % Neutrophils 58.1 % (42.2-75.2); Absolute Basophils 0.1 10^3/uL (0-0.2); Absolute Eosinophils 1.1 10^3/uL (0-0.7); Absolute Immature Granulocytes 0.1 10^3/uL (0-0.05); Absolute Monocytes 0.9 10^3/uL (0.1-0.6); Absolute Neutrophils 5.7 10^3/uL (1.4-6.5); Hematocrit 40.8 % (39.0-52.0); Hemoglobin 13.8 g/dL (13.0-18.0); Mean Corp Hgb Conc. 33.8 g/dL (33.0-37.0); Mean Corpuscular Hgb 29.5 pg (27.0-31.0); Mean Corpuscular Volume 87.2 fL (80.0-94.0); Mean Platelet Volume 8.7 fL (7.4-10.4); Nucleated Red Blood Cells % 0 % (-); Platelet Count 362 10^3/uL (130-400); Red Blood Cell Count 4.68 10^6/uL (4.70-6.10); Red Cell Dist. Width 13.7 % (11.5-14.5); White Blood Cell Count 9.8 10^3/uL (4.8-10.8)
[2024-02-28 15:03] LABS: Blood Urea Nitrogen 20 mg/dl (9-20); Calcium 9.5 mg/dl (8.4-10.2); Carbon Dioxide 28 mmol/L (22-30); Chloride 101 mmol/L (98-107); Creatine Phosphokinase 65 U/L (55-170); Glucose 267 mg/dl (70-99); Potassium 4.5 mmol/L (3.5-5.1); Sodium 137 mmol/L (135-145); eGFR > 60.00
[2024-02-28 15:35] LABS: Erythrocyte Sed Rate 35 mm/hour (0-20)
== END ==
LOC: REG 14:15
PROVIDERS: ATTENDING PHYSICIAN Internal Medicine Infectious Disease; FAMILY PHYSICIAN Family Medicine
DX: M86.172 Other acute osteomyelitis, left ankle and foot (principal)
CPT/HCPCS: 36415; 80048; 82550; 85025; 85652; 86140

== ENCOUNTER → 2024-03-07 09:57 | Outpatient (REF) | payer MEDICARE, OTHER, SELFPAY ==
[2024-03-07 12:27] LABS: % Basophils 0.7 % (0-2); % Eosinophils 8.9 % (0-6); % Immature Granulocytes 0.7 % (0-0.5); % Lymphocytes 17.5 % (20.5-51.1); % Monocytes 10.3 % (1.7-9.3); % Neutrophils 61.9 % (42.2-75.2); Absolute Basophils 0.1 10^3/uL (0-0.2); Absolute Eosinophils 0.9 10^3/uL (0-0.7); Absolute Immature Granulocytes 0.1 10^3/uL (0-0.05); Absolute Lymphocytes 1.8 10^3/uL (1.2-3.4); Absolute Neutrophils 6.3 10^3/uL (1.4-6.5); Hematocrit 42.4 % (39.0-52.0); Mean Corpuscular Hgb 29.1 pg (27.0-31.0); Mean Corpuscular Volume 88.1 fL (80.0-94.0); Mean Platelet Volume 9.3 fL (7.4-10.4); Nucleated Red Blood Cells % 0 % (-); Platelet Count 414 10^3/uL (130-400); Red Blood Cell Count 4.81 10^6/uL (4.70-6.10); Red Cell Dist. Width 13.4 % (11.5-14.5); White Blood Cell Count 10.1 10^3/uL (4.8-10.8)
[2024-03-07 13:15] LABS: Erythrocyte Sed Rate 41 mm/hour (0-20)
[2024-03-07 14:01] LABS: Blood Urea Nitrogen 22 mg/dl (9-20); Calcium 9.5 mg/dl (8.4-10.2); Carbon Dioxide 24 mmol/L (22-30); Chloride 99 mmol/L (98-107); Creatine Phosphokinase 52 U/L (55-170); Glucose 181 mg/dl (70-99); Potassium 4.9 mmol/L (3.5-5.1); Sodium 135 mmol/L (135-145); eGFR > 60.00
== END ==
LOC: REG 09:57
PROVIDERS: ATTENDING PHYSICIAN Internal Medicine Infectious Disease
DX: M86.172 Other acute osteomyelitis, left ankle and foot (principal)
CPT/HCPCS: 36415; 80048; 82550; 85025; 85652; 86140

== ENCOUNTER → 2024-05-31 09:47 | Outpatient (REF) | payer MEDICARE, OTHER, SELFPAY ==
[2024-05-31 11:43] LABS: Albumin 4.3 g/dl (3.5-5.0)
[2024-05-31 12:25] LABS: Glycohemoglobin (HgbA1c) 8.8 % (4.0-5.6)
== END ==
LOC: REG 09:47
PROVIDERS: ATTENDING PHYSICIAN Podiatrist Foot Surgery; FAMILY PHYSICIAN Family Medicine
DX: E11.9 Type 2 diabetes mellitus without complications (principal)
CPT/HCPCS: 36415; 82040; 83036

== ENCOUNTER 2024-07-03 19:32 | Inpatient (IN) | payer MEDICARE, OTHER, SELFPAY ==
[2024-07-03] VITALS (9 sets, daily range): BP systolic 22–154; BP diastolic 51–84; BMI 29.4
[2024-07-03 17:34] LABS: % Basophils 0.3 % (0-2); % Eosinophils 1.7 % (0-6); % Immature Granulocytes 0.3 % (0-0.5); % Lymphocytes 10.8 % (20.5-51.1); % Monocytes 13.9 % (1.7-9.3); Absolute Eosinophils 0.2 10^3/uL (0-0.7); Absolute Monocytes 1.3 10^3/uL (0.1-0.6); Absolute Neutrophils 6.8 10^3/uL (1.4-6.5); Hematocrit 43.7 % (39.0-52.0); Hemoglobin 14.9 g/dL (13.0-18.0); Mean Corp Hgb Conc. 34.1 g/dL (33.0-37.0); Mean Corpuscular Volume 88.1 fL (80.0-94.0); Mean Platelet Volume 8.6 fL (7.4-10.4); Nucleated Red Blood Cells % 0 % (-); Platelet Count 334 10^3/uL (130-400); Red Blood Cell Count 4.96 10^6/uL (4.70-6.10); Red Cell Dist. Width 14.3 % (11.5-14.5); White Blood Cell Count 9.3 10^3/uL (4.8-10.8)
--- NOTE | 2024-07-03 17:49 | ED.GENMED ---
History of Present Illness
General
Chief Complaint: Musculo-Skeletal Complaint
Source: patient, records and physician
Exam Limitations: none
Time Seen by Provider: 07/03/24 17:36
Nursing documentation reviewed up to this point in time: agreed with
History of Present Illness
History of Present Illness:
69-year male independent diabetic for many years followed by Dr. Reyna podiatry, he is status post amputation of a toe on the left foot previously treated with antibiotics, doing okay who is in a walking boot, developed pain and swelling with some
drainage saw Dr. Reyna had x-rays diagnosed with osteomyelitis referred to the ER for admission plan for OR tomorrow patient does not have a lot of feeling in the foot denies any trauma, denies fever nausea vomiting
Past History
Past History
ED Past Medical History: HTN, Hypercholesterolemia, NIDDM, NH and Other (Sleep apnea status post left knee meniscectomy )
ED Past Surgical History: Cardiac and Orthopedic
Social History
Tobacco: Non-smoker
Alcohol: None
Drug: None
Personal:
Living: with family
Family History
Family History: Diabetes
Review of Systems
Review of Systems
Allergies reviewed?: Yes
All Other Systems: Not applicable
Neurological: Reports no symptoms
Endocrine: Reports no symptoms
Hematologic/Lymphatic: Reports no symptoms
Phy Exam
Physical Exam
Physical Exam:
Physical Exam
General: no apparent distress, not acutely ill
Neck: No jaundice
Heart: s1/s2 regular rate and rhythm, no murmur. equal radial pulses.
Lungs: no acute respiratory distress. clear bilaterally
Neuro: alert and oriented. no focal neurological deficits
Skin: no rash
Psychiatric: well kept. interactive and cooperative
Extremities: Swelling redness foot, wound on the plantar surface status post amputation second toe
Course
Orders/Labs/Results
Orders:
Orders
07/03/24 Dinner
2000 calorie (17 carb) Diabetic
07/03/24 17:24
C-Reactive Protein Urgent
Comment: ADD ON
Complete Blood Count/With Diff Urgent
Comprehensive Metabolic Panel Urgent
Erythrocyte Sed Rate Urgent
Comment: ADD ON
07/03/24 17:36
Add On- LAB Urgent
Tests Added?: esr/crp
07/03/24 18:11
Foot, Left 3 View [CR Foot - Left Min 3 Views] Urgent
Comment:
Reason For Exam: swelling IDDM
07/03/24 18:31
Admit/Transfer Patient As Directed
Co-Sign Provider:
Level of Care: Inpatient admission
Assign to:: Medical/Surgical
Physician / Group: roberto
Diagnosis: osteomyelitis
Reason for Hospitalization: osteomyelitis
Expected length of stay greater than two midnights?: Yes
ELOS- Estimated Length of Stay in days: 2
I certify the patient meets the requirements for IP care: Yes
07/03/24 18:32
Code Status As Directed
Resuscitation Status: Do not resuscitate
Reached after discussion with pt or family/Healthcare POA: Yes
DNR Bracelet Application ONCE
PRN Pain Medication Management As Directed
May give lesser potent ordered pain med per pt: Yes
preference::
Protocol:: Medication orders for pain may be administered in a
manner that supports deferring to patient preference
when the pt is:
- Requesting an ordered lesser potent pain medication.
Least to most potent pain medications are defined
as: acetaminophen < NSAID < tramadol < opioids
(morphine, oxycodone, hydromorphone).
- Requesting a lesser dose of the same medication IF
ORDERED.
- Requesting a less intrusive route of administration
if both routes are prescribed by the provider (PO <
IV).
07/03/24 19:56
Acetaminophen [Tylenol] 650 mg PO Q4HPRN PRN
Dextrose 50%-Water [Dextrose 50% Syringe] 12.5 grams IV [id number] PRN
Glucagon [GlucaGen] 1 mg IM PRN PRN
Nitroglycerin Sublingual [Nitrostat (Sublingual)] 0.4 mg SL [id number] PRN
07/03/24 19:56
PODIATRY CONSULT Routine
Consulting Provider: Lamberto Reyna
Was physician already notified: Yes
Lower Ext No Joint, Left With MR [MR Left Le No Joint With] Routine
Comment:
Reason For Exam: osteomyelitis toes
Recent pill cam endoscopy?: No
Activity As Directed
Activity Level: As Tolerated
Bedside Glucose Monitoring As Directed
Frequency: AC&HS
Additional Instructions:: Change to q6h if pt on TPN, tube feeding or not eating
Pneumatic Compression Sleeves As Directed
Type: Knee high
Vital Signs As Directed
Frequency: Per unit guidelines
DX Deep Vein Thrombosis Video Routine
07/03/24 20:00
Piperacillin/Tazo 3.375 Gram [Zosyn] 3.375 gram in 50 ml IV Q6H
07/03/24 22:00
Latanoprost [Xalatan Ophthalmic Solution] See Dose Instructions BOTH EYES HS
insulin glargine [Lantus Solostar U-100 Insulin] 28 unit SC HS
07/04/24 00:00
Insulin Aspart Corrective Low [Novolog Flexpen-Low Resistance] See Protocol SC Q6
07/04/24 Breakfast
NPO
Allow oral meds: Yes
Allow clear liquids: Sips of Clears
Complete Blood Count/With Diff IN AM
Comprehensive Metabolic Panel IN AM
Glycohemoglobin (HgbA1c) IN AM
07/04/24 08:00
Dapagliflozin [Farxiga] 10 mg PO DAILY
Lisinopril [Zestril] 2.5 mg PO DAILY
Multivitamin [Theragran] 1 tablet PO DAILY
07/04/24 18:00
Atorvastatin [Lipitor] 40 mg PO QPM
Calcium Carbonate/Vitamin D3 [Oscal 500 + D] 500 mg PO QPM
Abnormal Lab Results
07/03/24
17:24
Absolute Neuts (auto) 6.8 H 10^3/uL
(1.4-6.5)
Absolute Lymphs (auto) 1.0 L 10^3/uL
(1.2-3.4)
Absolute Monos (auto) 1.3 H 10^3/uL
(0.1-0.6)
Lymphocytes % 10.8 L %
(20.5-51.1)
Monocytes % 13.9 H %
(1.7-9.3)
ESR 49 H mm/hour
(0-20)
BUN 23 H mg/dl
(9-20)
Glucose 156 H mg/dl
(70-99)
AST 86 H U/L
(17-59)
ALT 87 H U/L
(0-50)
C-Reactive Protein 156.30 H mg/L
(0.0-10.00)
07/03/24 17:24
07/03/24 17:24
Vital Signs
Initial and Last Documented VS:
Initial Vital Signs
Temp Pulse Resp BP Pulse Ox
98.0 F 110 16 138/84 98
07/03/24 17:08 07/03/24 17:08 07/03/24 17:08 07/03/24 17:08 07/03/24 17:08
Last Documented Vital Signs
Temp Pulse Resp BP Pulse Ox
98.0 F 110 16 138/84 98
07/03/24 17:08 07/03/24 17:08 07/03/24 18:20 07/03/24 17:08 07/03/24 17:08
*Critical Care Note
Total Time (30-74mins, 75-104mins- exclusive of procedures): Not Applicable
ED Attending Note
-
Portions of this chart may have been created with voice recognition software.� Occasional wrong word or��sound alike� substitutions may have occurred due to the inherent limitations of voice recognition software.
Discharge Plan
Departure
Patient Disposition: Admit
Date of Disposition: 07/03/24
Time of Disposition: 18:18
Admit to: Med/Surg
Presentation/result/management discussed w/ accepting MD/DO: Hospitalist
Patient with high blood pressure during this ER visit?: No
Condition: Fair
Covid-19: Not Applicable
Discharge Problem:
Osteomyelitis, Diabetes
Interventions
Interventions:
*Risk Screen - Suicide Last Done: 07/03/24 17:08
*General Assessment Last Done: 07/03/24 18:19
*Neglect/Abuse Screening Last Done: 07/03/24 17:08
ED- Fall Risk Assessment Last Done: 07/03/24 19:53
*ED COVID-19 Vaccine History Last Done: 07/03/24 18:19
*Nursing Disposition Last Done: 07/03/24 19:53
ED-Musculoskeletal Assessment Last Done: 07/03/24 18:19
Discharge Date and Time
Discharge Date/Time: 07/03/24 19:54
[2024-07-03 17:52] LABS: ALT (SGPT) 87 U/L (0-50); AST (SGOT) 86 U/L (17-59); Albumin 3.7 g/dl (3.5-5.0); Alkaline Phosphatase 117 U/L (38-126); Blood Urea Nitrogen 23 mg/dl (9-20); Carbon Dioxide 26 mmol/L (22-30); Chloride 98 mmol/L (98-107); Glucose 156 mg/dl (70-99); Potassium 4.7 mmol/L (3.5-5.1); Sodium 138 mmol/L (135-145); Total Protein 6.6 g/dl (6.3-8.2); eGFR > 60.00
[2024-07-03 17:53] LABS: Erythrocyte Sed Rate 49 mm/hour (0-20)
--- NOTE | 2024-07-03 18:38 | HPS.HSE ---
Addendum entered and electronically signed by Dev Vaughn MD 07/03/24 20:15:
Patient changed to Full code.
Original Note:
Family Physician
-
Family Physician: Edgar Sethi
Chief Complaint
-
left luis osteo
History of Present Illness
69-year-old male past medical history of CAD, diabetes, hypertension, hypercholesteremia, sleep apnea status post left knee meniscectomy presenting presenting for pain and swelling and drainage at the tip of the second and third toes over the past
few weeks. He saw Dr. Reyna and had x-rays and was diagnosed with osteomyelitis and was referred to the emergency room with plan for operating room tomorrow. He has chills but denies fever.
Denies smoking or alcohol
Medical History
Past Medical History
Past Medical History: Reports Other (CAD, diabetes, hypertension, hypercholesteremia, sleep apnea status post left knee meniscectomy)
Past Surgical History: Reports None
Social History
Tobacco: Non-smoker
Alcohol: None
Drug: None
Family History
Family History: Not pertinent
Allergies / Home Medications
Allergies reflects when Allergies were last updated in [facility].
Home Medications with original date entered in [facility]
Allergy/Medication List:
Allergies
Allergy/AdvReac Type Severity Reaction Status Date / Time
cat gut sutures Allergy Unknown Uncoded 07/03/24 17:10
Home Medications
glucosamine-chondroitin 250 mg-200 mg tablet (Osteo Bi-Flex) 2 tab PO BID@0800,1700 Supplement ##0 07/16/10
atorvastatin 40 mg tablet 40 mg PO QPM #90 tabs 11/02/13
lisinopril 2.5 mg tablet 2.5 mg PO DAILY #90 tabs 11/03/13
aspirin 81 mg tablet,delayed release 81 mg PO QPM Blood Clot Prevention/Tx 11/16/23
calcium 600 mg (as carbonate)-vitamin D3 5 mcg (200 unit) tablet (Calcium 600 + D(3)) 1 tab PO QPM Supplement 11/16/23
dulaglutide 4.5 mg/0.5 mL subcutaneous pen injector (Trulicity) 4.5 mg SC TU Diabetes 11/16/23
empagliflozin 25 mg tablet (Jardiance) 25 mg PO DAILY Diabetes 11/16/23
insulin glargine 100 unit/mL (3 mL) subcutaneous pen (Lantus Solostar U-100 Insulin) 55 unit SC HS Diabetes 11/16/23
latanoprost 0.005 % eye drops 1 drp BOTH EYES HS Eye Condition 11/16/23
metformin 1,000 mg tablet 1,000 mg PO BID@0800,1700 Diabetes 11/16/23
multivitamin 1 tab PO DAILY Supplement 11/16/23
nitroglycerin 0.4 mg sublingual tablet 0.4 mg sublingual [id number] PRN chest pain 11/16/23
sildenafil 100 mg tablet 100 mg PO DAILY PRN ed 11/16/23
Review of Systems
-
History Source: Patient
A 12 point ROS was completed and negative except as noted: Yes
Constitutional: Reports No Symptoms
EENT: Reports No Symptoms
Respiratory: Reports No Symptoms
Cardiac: Reports No Symptoms
Abdomen/GI: Reports No Symptoms
: Reports No Symptoms
Musculoskeletal: Reports No Symptoms
Skin: Reports No Symptoms
Neurological: Reports No Symptoms
Endocrine: Reports No Symptoms
Hematologic/Lymphatic: Reports No Symptoms
Psych: Reports No Symptoms
Physical Exam
Vital Signs
Vital Signs
Temp Pulse Resp BP Pulse Ox
98.0 F 110 16 138/84 98
07/03/24 17:08 07/03/24 17:08 07/03/24 18:20 07/03/24 17:08 07/03/24 17:08
Physical Exam
General: Well Developed, Well Nourished and No Apparent Distress
HEENT: NormoCephalic, Moist mucous membranes and Atraumatic
Respiratory: Clear
Cardiac: S1/S2 and Regular Rhythm; No Murmur or Rub
GI: Soft, Non Tender, Non Distended and Normal Bowel Sounds; No Organomegaly
Rectal: Deferred by Provider
Musculoskeletal: No Clubbing, No Cyanosis and No Edema
Skin: No Rash
Neuro: Nonfocal/grossly intact
Laboratory Results
-
07/03/24 17:24
07/03/24 17:24
Laboratory Results
Total Bilirubin 1.0 mg/dl (0.2-1.3) 07/03/24 17:24
AST 86 U/L (17-59) H 07/03/24 17:24
ALT 87 U/L (0-50) H 07/03/24 17:24
Alkaline Phosphatase 117 U/L (38-126) 07/03/24 17:24
Data Reviewed
-
Lab Data: Labs Reviewed by me
Old Records: Reviewed
Impression/Plan
-
IMPRESSION:
PLAN:
# Osteomyelitis of left foot with abscess
-N.p.o. postmidnight for or tomorrow
-Vancomycin/Zosyn
-Foot x-ray pending
-Check MRI of left foot
-ID consulted
# Transaminitis unclear etiology
-Continue to monitor
CAD
-Hold aspirin
-Continue statin
Type 2 diabetes
-Continue Lantus reduced dosage from 55 to 28 units
-Hold metformin
-Continue Jardiance
Essential hypertension
-Continue lisinopril
Hypercholesterolemia
Obstructive sleep apnea
DNR/DNI
DVT prophylaxis�SCDs
N.p.o. postmidnight
--- NOTE | 2024-07-03 20:32 | PHA.VAN.IN ---
Addendum entered and electronically signed by Nadiya Calvillo Shania 07/04/24 08:50:
Correction: Vancomycin 1500mg Q12H provided the following patient-specific PK in November 2023:
AUC = 505
Extrapolated Cmax = 32
Extrapolated Cmin = 12.7
ke = 0.0881
T1/2 = 7.9 H
Vd = 67 L
Vanc Cl = 98.9 ml/min
Levels were drawn at steady state after 5th maintenance dose
Patient's weight remains similar
SCR similar but slightly decreased during prior dosing experience. BUN currently is slightly elevated but trending down.
Original Note:
Assessment
- Assessment
Renal Function: Appears similar to baseline (11/17/23 BASELINE SCR: 0.9)
Concomitant Antimicrobials: ZOSYN
- Previous Dosing Experience
Previous Regimen: 1500MG IV Q12H
Date of Regimen: 11/17/23
Provided Trough of: 13
Provided AUC of: 478 PREDICTED
Patient's SCR is: Similar to previous dosing experience (11/17/23 SCR = 0.9)
Patient's weight is: Similar to previous dosing experience (11/17/23 WT = 95.3)
AUC Dosing Plan
- Dosing Variables
Dosing Weight (kg): 95.7
Dosing CrCl (ml/min): 77
Vd coefficient (L/kg): 0.7
BASED ON PRIOR DOSING
- Empiric Dosing
Initial / Loading Dose: 2GM
Maintenance Regimen: 1500MG IV Q12H
Estimated AUC (mcg*h/mL): 478
Estimated Peak (mcg*h/mL): 33
Estimated Trough (mcg/ml): 13.5
Estimated Half Life (H): 10.1
Pharmacokinetics Vancomycin I
- -
Patient Age: 69
Patient Sex: Male
Vancomycin Day #: 1
Indication: [facility] ([facility] FOOT)
Requesting Provider: ZACKERY
Height / Weight:
Height 5 ft 8.75 in
Actual Weight 95.7 kg
Pertinent Past Medical History: DM; PRIOR GANGRENE 11/17/23
- Vital Signs / Lab Results
Temp Pulse Resp BP Pulse Ox
98.0 F 110 16 138/84 98
07/03/24 17:08 07/03/24 17:08 07/03/24 18:20 07/03/24 17:08 07/03/24 17:08
Lab Results - Hematology
07/03/24
17:24
WBC 9.3
Lab Results - Chemistry
07/03/24
17:24
BUN 23 H
Creatinine 0.9
Albumin 3.7
--- NOTE | 2024-07-03 20:55 | W.PN.UPDATE ---
Update Note
Progress Note Update
pt seen today aftr admit from office
pt with chronic ulcer left and seen with absces/gas left foot
Gas on xrays today
will plan for emergent ID
consent signed
pt will need mult sx to slavage foot
full consult dictated
[2024-07-03 21:03] LABS: Glucose - Point of Care 209 mg/dl (70-99)
--- NOTE | 2024-07-03 21:15 | PTCARENOTE ---
Pt admit to room 321 from ED via bed. Several minutes after pt arrived Dr. Reyna called and stated that pt is going to OR shortly and asked when he last had something to eat. Pt states he ate a turkey sandwhich approx 2 hours prior to coming to
floor. CHG wipes done. Pt changed into gown. Antibiotic sent to OR as pt did not have IV access on arrival to floor. Pt taken to OR via bed.
--- NOTE | 2024-07-03 21:51 | W.PN.UPDATE ---
Update Note
Progress Note Update
pt seen in RR\\
no pain
dressing cdi
cft intact
a/p s/p mult I&D deep space abscesses with excisonal debridement st left fooot---stable for now
will need mult surgery to salvage foot, most likely tma
wound packed
nwb left foot, complete bedrest
cont abx
appreciate all input
[2024-07-03 21:54] LABS: Glucose - Point of Care 163 mg/dl (70-99)
[2024-07-03] MEDS: ZOSYN 50 IV (22:05)
[2024-07-03] MEDS: VANCOCIN 540 MG IV (22:27)
[2024-07-03] MEDS: XALATAN OPHTHALMIC SOLUTION BOTH EYES ×2 (22:32→22:40)
[2024-07-03 23:18] LABS: Glucose - Point of Care 116 mg/dl (70-99)
[2024-07-04 00:48] VITALS: BP 125/66
[2024-07-04 02:03] VITALS: BP 133/66
[2024-07-04 02:04] LABS: Glucose - Point of Care 91 mg/dl (70-99)
[2024-07-04] MEDS: ZOSYN 50 IV (02:20)
[2024-07-04] MEDS: TYLENOL 650 MG PO (02:25)
[2024-07-04 04:04] VITALS: BP 108/52
[2024-07-04] MEDS: VANCOCIN 300 ML IV ×2 (05:37→18:42)
[2024-07-04] MEDS: VANCOCIN 300 MG IV ×2 (05:37→18:42)
[2024-07-04 05:43] LABS: Glucose - Point of Care 89 mg/dl (70-99)
[2024-07-04 07:23] LABS: % Basophils 0.5 % (0-2); % Immature Granulocytes 0.5 % (0-0.5); % Lymphocytes 13.2 % (20.5-51.1); % Monocytes 13.8 % (1.7-9.3); Absolute Eosinophils 0.2 10^3/uL (0-0.7); Absolute Lymphocytes 1.1 10^3/uL (1.2-3.4); Absolute Monocytes 1.2 10^3/uL (0.1-0.6); Hematocrit 39.9 % (39.0-52.0); Hemoglobin 13.5 g/dL (13.0-18.0); Mean Corp Hgb Conc. 33.8 g/dL (33.0-37.0); Mean Corpuscular Hgb 29.4 pg (27.0-31.0); Mean Corpuscular Volume 86.9 fL (80.0-94.0); Mean Platelet Volume 8.4 fL (7.4-10.4); Nucleated Red Blood Cells % 0 % (-); Platelet Count 309 10^3/uL (130-400); Red Blood Cell Count 4.59 10^6/uL (4.70-6.10); Red Cell Dist. Width 14.4 % (11.5-14.5); White Blood Cell Count 8.6 10^3/uL (4.8-10.8)
--- NOTE | 2024-07-04 07:39 | W.PN.POD ---
Today's Communication
Today's Communication
s.p mult I&D left foot---stbale for now and gas /pus removed
mri today
nwb
had lengthy d/w pt about salvage of foot, due to extent of ST damage and dislocated mpjs and probable osteo 2nd and 3rd met, pt would best benefit from midfoot amp/tma
all questions answered, no guarantees given'
will plan for tma tomoorow
can eat today and npo after midnight tonight
consent obtained
may need delayed closure after tma
Subjective
Chief Complaint
pt seen at bedside s/p I&D mult deep space abscesses left foot
no pain
denies f/ns
Subjective
vasc foot warm, 3rd toe dusky from infection and trauma
decreased cellulitis, no odor, still with some necrosis in wound
no pus
pt also with dislocated 2nd and 3rd mpjs and exposed bone
Objective
Temp Pulse Resp BP Pulse Ox
100.4 F H 92 16 108/52 95
07/04/24 04:04 07/04/24 04:04 07/04/24 04:04 07/04/24 04:04 07/04/24 04:04
07/04/24 06:27
Vital Signs and Lab results were reviewed.
[2024-07-04 07:45] LABS: ALT (SGPT) 73 U/L (0-50); AST (SGOT) 57 U/L (17-59); Albumin 3.1 g/dl (3.5-5.0); Alkaline Phosphatase 99 U/L (38-126); Blood Urea Nitrogen 21 mg/dl (9-20); Calcium 8.6 mg/dl (8.4-10.2); Carbon Dioxide 24 mmol/L (22-30); Chloride 99 mmol/L (98-107); Estimated Creatinine Clearance 72 ml/min; Glucose 85 mg/dl (70-99); Potassium 4.7 mmol/L (3.5-5.1); Sodium 137 mmol/L (135-145); Total Bilirubin 0.8 mg/dl (0.2-1.3); Total Protein 5.8 g/dl (6.3-8.2); eGFR > 60.00
[2024-07-04 08:00] VITALS: BP 139/78
[2024-07-04] MEDS: THERAGRAN 1 TABLET PO (08:21)
[2024-07-04] MEDS: ZESTRIL 2.5 MG PO (08:21)
[2024-07-04] MEDS: ZOSYN IV (08:28)
--- NOTE | 2024-07-04 08:46 | PHA.VAN.FU ---
Vancomycin Assessment / Plan
- Assessment
Renal Function: Stable
WBC's are: WNL
In the past 24 hrs, patient has been: Febrile
Concomitant Antimicrobials: cefepime, metronidazole
- Dosing Plan
Continue: Vanc 1500mg Q12H based on prior dosing experience
- Monitoring Plan
No level(s) ordered at this time: consider levels in next few days
- Follow Up
Pharmacy will continue to follow.
Vancomycin Follow UP
- -
Patient Age: 69
Patient Sex: Male
Vancomycin Day #: 2
Indication: Bone And Joint
Requesting Provider: Dr. Vaughn
Pertinent Antimicrobial Allergies:
no pertinent antibiotic allergies
Height / Weight:
Height 5 ft 10 in
Actual Weight 92.986 kg
Pertinent Past Medical History: DM
- Vital Signs / Lab Results
Temp Pulse Resp BP Pulse Ox
98.5 F 92 16 139/78 98
07/04/24 08:00 07/04/24 08:21 07/04/24 08:00 07/04/24 08:21 07/04/24 08:00
Lab Results - Hematology
07/03/24 07/04/24
17:24 06:27
WBC 9.3 8.6
Lab Results - Chemistry
07/03/24 07/04/24
17:24 06:27
BUN 23 H 21 H
Creatinine 0.9 1.0
Estimated Creat Clear 72
Albumin 3.7 3.1 L
[2024-07-04] MEDS: HEPARIN 5000 UNITS SC ×2 (08:52→20:05)
--- NOTE | 2024-07-04 09:09 | CON.ID ---
Consultation
-
Date/Time Consultation Requested: July 03, 2024 2342
Date/Time Consultation Performed: July 04, 2024 0910
Requesting Provider: Dr. Gilmar Olvia
Performing Provider: Dr. Dorita Garcia
Reason for Consultation: Foot infection with gas seen in XRAY
Chief Complaint / Past History
Chief Complaint
left Foot swelling and pain
History of Present Illness
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
wounds at the tip of his left second and third toes. Toes became dusky and edematous last week. He saw his family development specialist who ordered an x-ray showing severe infection with abscesses, soft tissue gas, suspected osteomyelitis of the proximal second and
third toes. He was admitted to the hospital July 03. He was febrile. He was taken to the OR emergently last night status post drainage of multiple abscesses, I&D. Cultures pending. Podiatry is planning TMA tomorrow. Patient reports
positive chills at home. No nausea or vomiting. No diarrhea. No acute complaints.
Past History
Additional Past Medical History:
HTN
DM
Peripheral neuropathy
Dyslipidemia
CAD s/p stent
JEREMIAS
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
Left hallux amp site MRSA osteo s/p 6 weeks daptomycin (February 2024).
Left meniscus tear repair
Additional Past Surgical History:
'
Allergy History:
cat gut sutures Allergy (Uncoded 07/03/24 17:10)
Unknown
Medications Reviewed: Yes
Current Antibiotics:
Vanco
cefepime
metronidazole
Social History
Tobacco: Non-Smoker
Alcohol: None
Drug: None
Personal:
Living: With Family
Employment: Retired
Family History
Family History: Not Pertinent
Review of Systems
Review of Systems
General: Chills; Negative Change in Appetite
HEENT: Negative Sinus Problems, Headache or Pharyngitis
Cardiovascular: Negative Chest Pain or Dyspnea
Respiratory: Negative Dyspnea or Cough
Gasteroenterology: Negative Nausea or Vomiting
Genital / Urological: Negative Dysuria or Flank Pain
Endocrine: Negative Weakness
Neurological: Negative Dizziness
All systems: All other systems were reviewed and were negative
Vital Signs
Temp Pulse Resp BP Pulse Ox
98.5 F 92 16 139/78 98
07/04/24 08:00 07/04/24 08:21 07/04/24 08:00 07/04/24 08:21 07/04/24 08:00
Selected Entries
07/04/24
02:03
Temp 101.0 F H
Physical Exam
Physical Exam
Constitutional: No Acute Distress and Comfortable
Eyes: Sclera Anicteric and Erythema
Cardiovascular: Regular Rate and S1/S2
Pulmonary: Clear
Gastrointestinal: Soft, Non Tender, Non Distended and Normal Bowel Sounds
Genito-Urinary: Negative CVA Tenderness
Wound: Other (left foot with post-op dressing in place. Tip of 2nd toe dusky. )
Lab / Diagnostic Study Results
07/04/24 06:27
07/04/24 06:27
Abs Immat Gran (auto) 0.0 10^3/uL (0-0.05) 07/04/24 06:27
Absolute Neuts (auto) 6.0 10^3/uL (1.4-6.5) 07/04/24 06:27
Absolute Lymphs (auto) 1.1 10^3/uL (1.2-3.4) L 07/04/24 06:27
Absolute Monos (auto) 1.2 10^3/uL (0.1-0.6) H 07/04/24 06:27
Absolute Basos (auto) 0.0 10^3/uL (0-0.2) 07/04/24 06:27
Immature Gran % 0.5 % (0-0.5) 07/04/24 06:
Neutrophils % 70.0 % (42.2-75.2) 07/04/24 06:
Lymphocytes % 13.2 % (20.5-51.1) L 07/04/24 06:
Monocytes % 13.8 % (1.7-9.3) H 07/04/24 06:
Eosinophils % 2.0 % (0-6) 07/04/24 06:
Basophils % 0.5 % (0-2) 07/04/24 06:27
ESR 49 mm/hour (0-20) H 07/03/24 17:24
C-Reactive Protein 156.30 mg/L (0.0-10.00) H 07/03/24 17:24
Microbiology Results
Micro:
07/03/24 21:40 Wound Culture - Pending
Foot - Left Gram Stain - Preliminary
07/03/24 21:40 Anaerobic Culture - Pending
Foot - Left
07/03/24: XRAY: Severe soft tissue swelling in the dorsal left foot surrounding multiple bubbles of SOFT TISSUE EMPHYSEMA suggesting SEVERE CELLULITIS and a soft tissue abscess. Mild periosteal reaction in the bases and proximal shafts of the
proximal phalanges left 2nd and 3rd toes suspicious for acute osteomyelitis. New dorsal dislocation of the proximal phalanges of the left 2nd and 3rd toes.
Assessment / Plan
# Severe diabetic left foot infection with multiple abscesses, osteo
# Fever
# Uncontrolled DM
- 07/03/24 s/p I+D abscesses
OR cx's pending
- For TMA tomorrow per podiatry.
-Continue Vancomycin/cefepime/metronidazole for now.
# Conditions FOOTBALL SCOUT
HTN
DM
Peripheral neuropathy
Dyslipidemia
CAD s/p stent
JEREMIAS
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
Left hallux amp site MRSA osteo s/p 6 weeks daptomycin (February 2024).
Left meniscus tear repair
--- NOTE | 2024-07-04 09:40 | W.PN.HOSP.TC ---
Today's Communication/Plan
-
MRI today
OR tomorrow
Depending upon evening sugars he may need a small dose of Lantus. But with a blood sugar of 89, I will not order a standing dose.
Notify for sugars over 200
Assessment / Plan
Assessment / Plan
69-year-old male presented with pain in drainage of the second and third toes over the past few weeks. He saw Dr. Cortes and was referred to the ER. Plan 4 OR
Foot x-ray reviewed by me-soft tissue swelling, soft tissue emphysema, second and third toe acute osteomyelitis, dislocation of second and third toes
CVS: S1-S2 normal
Chest: CTA B/L
Abdomen: Soft, NT / Bowel sounds present
Extremities: right foot bandaged
INTEGRITY ASSESSOR: Non focal exam
# Osteomyelitis of the left foot with abscess
Change Zosyn to cefepime and Flagyl and continue vancomycin
X ray As above
MRI of the foot
ID and podiatry consulted
Status post IND of the left foot-gas and pus removed
Podiatry feels that he will benefit from midfoot amputation/TMA
TMA planned for tomorrow-07/05/2024
Wait for cultures and place in OR cultures and pathology
Palpable pulses.
# Ihpdsbdotnynj-ttctdds-etzsiaczj likely secondary to infection
# Coronary artery disease with history of MA and stent-continue aspirin and statin
# Diabetes-normally on Lantus 55 units, Trulicity 4.5 Mg SC TU , metformin and Jardiance as outpatient
Sugars stable with SSI
Hold metformin and Jardiance as he is going to be n.p.o. after midnight again for tomorrow
Need to closely monitor sugars-stable now
Check hemoglobin A1c
# Sleep apnea-continue CPAP
# Hypertension-continue lisinopril
# Mild elevation in ALT due to infection
# Hyperlipidemia-continue statin
# Glaucoma and impaired vision
# Obesity per BMI
# DVT prophylaxis-subcutaneous heparin
# Full code
Discussed with podiatry
D/W RN AT BED SIDE
Anticipated Discharge: > 48 hours
Subjective/Interval History
-
Date of Service: July 04, 2024
Objective Data
-
Labs:
Laboratory Results
07/04/24
06:27
WBC 8.6
Hgb 13.5
Hct 39.9
Plt Count 309
Sodium 137
Potassium 4.7
Chloride 99
Carbon Dioxide 24
BUN 21 H
Creatinine 1.0
Glucose 85
Calcium 8.6
Total Bilirubin 0.8
AST 57
ALT 73 H
Alkaline Phosphatase 99
Vital Signs:
Vital Signs
Temp Pulse Resp BP Pulse Ox
98.5 F 92 16 139/78 98
07/04/24 08:00 07/04/24 08:21 07/04/24 08:00 07/04/24 08:21 07/04/24 08:00
I&O
07/03/24 07/04/24 07/05/24
06:59 06:59 06:59
Output Total 350 / 350
Balance -350 / -350
[2024-07-04 10:09] LABS: Glycohemoglobin (HgbA1c) 9.4 % (4.0-5.6)
[2024-07-04] MEDS: FLAGYL 500 MG 100 IV ×2 (10:22→17:31)
[2024-07-04] MEDS: MAXIPIME 2000 MG IV ×2 (11:23→17:31)
[2024-07-04] MEDS: STERILE WATER FOR INJECTION 10 ML IV ×2 (11:23→17:31)
[2024-07-04 15:00] VITALS: BP 127/73
[2024-07-04] MEDS: NON-FORMULARY ITEM 4.5 MG SC (16:22)
--- NOTE | 2024-07-04 16:49 | CM ---
Reviewed chart, met with patient to obtain information for assessment. Patient stated that he lives with his , daughter and granddaughter in a two story home with three steps to enter. He described himself as independent with all of his ADLs,
personal care, dressing and bathing. He ambulates independently. He does have a knee scooter. 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
Patient has had VN in the past through and [facility].
He denied any additional DME.
He has not been to a SNF before .
Patient has a prescription plan and uses, [facility] for all of his medications.
Patient's PCP is, Edgar Sethi.
Patient stated that he feels he will be able to return home when stable. Will be agreeable to VN if indicated.
Plan: Case management will continue to follow and assist with discharge planning. Home when stable.
[2024-07-04] MEDS: LIPITOR 40 MG PO (17:32)
[2024-07-04] MEDS: OSCAL 500 + D 500 MG PO (17:32)
[2024-07-04] MEDS: ASPIR LOW (ENTERIC COATED) 81 MG PO (18:42)
[2024-07-04] MEDS: NOVOLOG FLEXPEN-LOW RESISTANCE 2 UNITS SC (18:50)
[2024-07-04 18:52] LABS: Glucose - Point of Care 231 mg/dl (70-99)
[2024-07-04] MEDS: XALATAN OPHTHALMIC SOLUTION BOTH EYES (21:48)
[2024-07-04 23:33] VITALS: BP 119/60
[2024-07-05] VITALS (14 sets, daily range): BP systolic 92–133; BP diastolic 41–98
[2024-07-05] MEDS: STERILE WATER FOR INJECTION 10 ML IV ×2 (01:30→09:38)
[2024-07-05] MEDS: FLAGYL 500 MG 100 IV ×2 (01:30→09:37)
[2024-07-05] MEDS: MAXIPIME 2000 MG IV ×2 (01:30→09:37)
[2024-07-05] MEDS: VANCOCIN 300 MG IV (05:30)
[2024-07-05] MEDS: VANCOCIN 300 ML IV (05:30)
[2024-07-05 06:27] LABS: Hematocrit 36.6 % (39.0-52.0); Hemoglobin 12.7 g/dL (13.0-18.0); Mean Corp Hgb Conc. 34.7 g/dL (33.0-37.0); Mean Corpuscular Hgb 30.7 pg (27.0-31.0); Mean Corpuscular Volume 88.4 fL (80.0-94.0); Mean Platelet Volume 8.4 fL (7.4-10.4); Platelet Count 286 10^3/uL (130-400); Red Blood Cell Count 4.14 10^6/uL (4.70-6.10); Red Cell Dist. Width 14.2 % (11.5-14.5); White Blood Cell Count 8.1 10^3/uL (4.8-10.8)
[2024-07-05 06:50] LABS: Blood Urea Nitrogen 21 mg/dl (9-20); Calcium 8.4 mg/dl (8.4-10.2); Carbon Dioxide 26 mmol/L (22-30); Chloride 101 mmol/L (98-107); Estimated Creatinine Clearance 72 ml/min; Glucose 149 mg/dl (70-99); Potassium 4.8 mmol/L (3.5-5.1); Sodium 137 mmol/L (135-145); eGFR > 60.00
[2024-07-05] MEDS: ZESTRIL 2.5 MG PO (08:14)
[2024-07-05] MEDS: HEPARIN 5000 UNITS SC ×2 (08:15→23:20)
[2024-07-05] MEDS: THERAGRAN 1 TABLET PO (08:16)
[2024-07-05] MEDS: NOVOLOG FLEXPEN-LOW RESISTANCE SC ×2 (08:41→19:06)
--- NOTE | 2024-07-05 08:44 | PHA.VAN.FU ---
Vancomycin Assessment / Plan
- Assessment
Renal Function: Stable
Concomitant Antimicrobials: cefepime, metronidazole
- Dosing Plan
Continue: Vanc 1500mg Q12H
- Monitoring Plan
No level(s) ordered at this time: consider levels in next few days
- Follow Up
Pharmacy will continue to follow.
Vancomycin Follow UP
- -
Patient Age: 69
Patient Sex: Male
Vancomycin Day #: 3
Indication: Bone And Joint
Requesting Provider: Dr. Vaughn
Pertinent Antimicrobial Allergies:
no pertinent antibiotic allergies
Height / Weight:
Height 5 ft 10 in
Actual Weight 92.986 kg
Pertinent Past Medical History: DM
- Vital Signs / Lab Results
Temp Pulse Resp BP Pulse Ox
98.3 F 75 18 125/63 99
07/05/24 07:44 07/05/24 08:14 07/05/24 07:44 07/05/24 08:14 07/05/24 07:44
Lab Results - Hematology
07/03/24 07/04/24 07/05/24
17:24 06:27 05:55
WBC 9.3 8.6 8.1
Lab Results - Chemistry
07/03/24 07/04/24 07/05/24
17:24 06:27 05:55
BUN 23 H 21 H 21 H
Creatinine 0.9 1.0 1.0
Estimated Creat Clear 72 72
Albumin 3.7 3.1 L
Microbiology Results
07/03/24 21:40 Anaerobic Culture - Preliminary
Foot - Left Culture pending. Anaerobic cultures are examined after 3
days incubation. Additional information to follow.
07/03/24 21:40 Gram Stain - Preliminary
Foot - Left
--- NOTE | 2024-07-05 10:27 | W.PN.HOSP.TC ---
Today's Communication/Plan
-
4 OR today
Start IV fluids
Watch sugars
Assessment / Plan
Assessment / Plan
69-year-old male presented with pain in drainage of the second and third toes over the past few weeks. He saw Dr. Cortes and was referred to the ER. Plan 4 OR
Foot x-ray reviewed by me-soft tissue swelling, soft tissue emphysema, second and third toe acute osteomyelitis, dislocation of second and third toes
MRI-osteomyelitis of the second third metatarsal and second and third proximal phalanges. Dorsal dislocation of the second and third metatarsophalangeal joints. Previous amputation of the first ray. Multiple soft tissue wounds with extensive
cellulitis about the forefoot. Severe diabetic myopathy
CVS: S1-S2 normal
Chest: CTA B/L
Abdomen: Soft, NT / Bowel sounds present
Extremities: right foot bandaged
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
# Osteomyelitis of the left foot with abscess
Cefepime , Flagyl and continue vancomycin
Imaging with osteomyelitis and dislocation
ID and podiatry consulted
Status post IND of the left foot-gas and pus removed 07/03/2024
Podiatry feels that he will benefit from midfoot amputation/TMA
TMA planned-07/05/2024
Wait for cultures and place in OR cultures and pathology
Palpable pulses.
# Keyzcvxyrplxu-bjimmai-fmaiklkhy likely secondary to infection
# Coronary artery disease with history of [place] and stent-continue aspirin and statin
# Diabetes-normally on Lantus 55 units, Trulicity 4.5 Mg SC TU , metformin and Jardiance as outpatient
Sugars stable with SSI
Hold metformin and Jardiance as he is going to be n.p.o. after midnight again for tomorrow
Need to closely monitor sugars-stable now
Hemoglobin A1c 9.4 indicates poor control
# Sleep apnea-continue CPAP
# Hypertension-continue lisinopril
# Mild elevation in ALT due to infection
# Hyperlipidemia-continue statin
# Glaucoma and impaired vision
# Obesity per BMI
# DVT prophylaxis-subcutaneous heparin
# Full code
Discussed with podiatry
D/W RN AT BED SIDE
Anticipated Discharge: > 48 hours
Subjective/Interval History
-
Date of Service: July 05, 2024
Objective Data
-
Labs:
Laboratory Results
07/05/24
05:55
WBC 8.1
Hgb 12.7 L
Hct 36.6 L
Plt Count 286
Sodium 137
Potassium 4.8
Chloride 101
Carbon Dioxide 26
BUN 21 H
Creatinine 1.0
Glucose 149 H
Calcium 8.4
Vital Signs:
Vital Signs
Temp Pulse Resp BP Pulse Ox
98.3 F 75 18 125/63 99
07/05/24 07:44 07/05/24 08:14 07/05/24 07:44 07/05/24 08:14 07/05/24 07:44
I&O
07/04/24 07/05/24 07/06/24
06:59 06:59 06:59
Intake Total 1440 / 1440
Output Total 350 / 350 4000 / 4000
Balance -350 / -350 -2560 / -2560
[2024-07-05 10:37] LABS: Glucose - Point of Care 183 mg/dl (70-99)
[2024-07-05] MEDS: NOVOLOG FLEXPEN 2 UNITS SC (10:39)
[2024-07-05] MEDS: NSS 1000 IV (10:39)
[2024-07-05 12:33] LABS: Glucose - Point of Care 160 mg/dl (70-99)
[2024-07-05] MEDS: NOVOLOG FLEXPEN-LOW RESISTANCE 1 UNITS SC (12:36)
--- NOTE | 2024-07-05 13:13 | PN.CDI ---
Addendum entered and electronically signed by Gilmar Oliva MD 07/07/24 14:52:
Documentation is complete at this time.
Original Note:
CDI
- -
CDI:
Physician Documentation Request
Admit Date: 07/03/24 19:32
Dear Doctor Hazel,
Clinical Indicators:
Patient admitted with Osteomyelitis of left foot with abscess; s/p emergent I & D/debridement of left foot 07/03.
07/04 ID consult, 'Patient reports positive chills at home.'
Temp trend:
07/03/24
20:58 07/04/24
02:03 07/04/24
04:04
Temp 99.5 F 101.0 F H 100.4 F H
HR trend:
07/03/24
17:08 07/03/24
20:58 07/03/24
22:00
Pulse 110 114 100
07/03/24
23:25 07/04/24
00:48 07/04/24
02:03
Pulse 96 101 102
Please clarify which of the following most accurately describes the status of the patient's infection:
Sepsis (please specify if POA)
- Systemic manifestations of infection, with 2 or more SIRS criteria which include:
- Fever >100.4 degrees F or hypothermia < 96.8 degrees F
- Leukocytosis - WBC > 12,000 or leukopenia - WBC < 4,000 or > 10% bands
- Tachycardia > 90 beats per minute
- Tachypnea - RR > 20 breaths per minute or PaCO2 , 32mmHg
Source: Merck Manual 2013
Osteomyelitis Only, Without Systemic Illness
Other, please specify
Use of terms such as suspected, likely, concern for, or probable (associated with a specific diagnosis that is being evaluated, monitored, or treated as if it exists) are acceptable and can be coded in the inpatient setting, when documented at the
time of discharge.
Thank you,
Leann Levy RN BSN
CDI Specialist
available via tiger text
Please use your independent medical judgment in providing your response.
--- NOTE | 2024-07-05 13:57 | W.PN.ID1 ---
Date of Service
Date of Service: July 05, 2024
Today's Communication
Continue Vanco, cefepime, metronidazole.
Assessment / Plan
# Severe diabetic left foot infection with multiple abscesses, osteo
# Fever resolved
# Uncontrolled DM
-MRI + osteo second and third metatarsals and prox phalanges
- 07/03/24 s/p I+D abscesses
OR cx's S. aureus
- For TMA per podiatry.
-Continue Vancomycin/cefepime/metronidazole for now.
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
HTN
DM
Peripheral neuropathy
Dyslipidemia
CAD s/p stent
JEREMIAS
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
Left hallux amp site MRSA osteo s/p 6 weeks daptomycin (February 2024).
Left meniscus tear repair
Chief Complaint
-: Other (Severe diabetic foot infection)
Subjective / Review of Systems
No new complaints.
Vital Signs / Physical Exam
Vital Signs
Vital Signs
Temp Pulse Resp BP Pulse Ox
98.3 F 75 18 125/63 99
07/05/24 07:44 07/05/24 08:14 07/05/24 07:44 07/05/24 08:14 07/05/24 07:44
Physical Exam
Constitutional: No Acute Distress
Cardiovascular: Regular Rate and S1/S2
Pulmonary: Clear
Gastrointestinal: Soft, Non Tender, Non Distended and Normal Bowel Sounds
Wound: Other (left foot dressing dry.)
Objective Data
Lab Data
Lab Results
07/05/24 05:55
07/05/24 05:55
ESR 49 mm/hour (0-20) H 07/03/24 17:24
Estimated Creat Clear 72 ml/min 07/05/24 05:55
Total Bilirubin 0.8 mg/dl (0.2-1.3) 07/04/24 06:27
AST 57 U/L (17-59) 07/04/24 06:27
ALT 73 U/L (0-50) H 07/04/24 06:27
Alkaline Phosphatase 99 U/L (38-126) 07/04/24 06:27
C-Reactive Protein 156.30 mg/L (0.0-10.00) H 07/03/24 17:24
Most recent labs reviewed.
Micro Results:
07/03/24 21:40 Anaerobic Culture - Preliminary
Foot - Left Culture pending. Anaerobic cultures are examined after 3
days incubation. Additional information to follow.
07/03/24 21:40 Wound Culture - Preliminary
Foot - Left Staphylococcus aureus
Gram Stain - Preliminary
07/03/24: XRAY: Severe soft tissue swelling in the dorsal left foot surrounding multiple bubbles of SOFT TISSUE EMPHYSEMA suggesting SEVERE CELLULITIS and a soft tissue abscess. Mild periosteal reaction in the bases and proximal shafts of the
proximal phalanges left 2nd and 3rd toes suspicious for acute osteomyelitis. New dorsal dislocation of the proximal phalanges of the left 2nd and 3rd toes.
07/04/24 MRI LLE: Osteomyelitis of the second and third metatarsals, and the second and third proximal phalanges. Dorsal dislocation of the second and third metatarsophalangeal joints. Previous amputation of the first ray.
[2024-07-05 18:26] LABS: Glucose - Point of Care 110 mg/dl (70-99)
--- NOTE | 2024-07-05 18:28 | W.PN.UPDATE ---
Update Note
Progress Note Update
pt seen in RR
no pain'dressing cdi
vasc intact
a/p s/p tma left foot---stable
bone sent to path and C&s
rec 6 weeks iv abx per ID upon dc
did proximal tma
will see in am
nwb left foot
wound closed
[2024-07-05] MEDS: FLAGYL 500 MG IV (19:04)
[2024-07-05] MEDS: MAXIPIME IV (19:25)
[2024-07-05] MEDS: STERILE WATER FOR INJECTION IV (19:26)
[2024-07-05] MEDS: VANCOCIN IV ×2 (19:27)
[2024-07-05] MEDS: OSCAL 500 + D 500 MG PO (20:20)
[2024-07-05] MEDS: ASPIR LOW (ENTERIC COATED) 81 MG PO (20:20)
[2024-07-05] MEDS: LIPITOR 40 MG PO (20:20)
[2024-07-05] MEDS: XALATAN OPHTHALMIC SOLUTION BOTH EYES (20:21)
[2024-07-05] MEDS: NSS IV (20:21)
[2024-07-05 21:04] LABS: Glucose - Point of Care 196 mg/dl (70-99)
[2024-07-06] MEDS: STERILE WATER FOR INJECTION 10 ML IV ×2 (01:34→09:07)
[2024-07-06] MEDS: FLAGYL 500 MG 100 IV ×2 (01:34→09:06)
[2024-07-06] MEDS: MAXIPIME 2000 MG IV ×2 (01:34→09:06)
[2024-07-06 03:03] VITALS: BP 119/80
[2024-07-06] MEDS: VANCOCIN 300 MG IV (05:33)
[2024-07-06] MEDS: VANCOCIN 300 ML IV (05:33)
[2024-07-06] MEDS: VISBIOME 1 CAP PO (06:35)
[2024-07-06 06:48] LABS: Hematocrit 38.6 % (39.0-52.0); Hemoglobin 13.4 g/dL (13.0-18.0); Mean Corp Hgb Conc. 34.7 g/dL (33.0-37.0); Mean Corpuscular Hgb 30.4 pg (27.0-31.0); Mean Corpuscular Volume 87.5 fL (80.0-94.0); Mean Platelet Volume 8.8 fL (7.4-10.4); Platelet Count 338 10^3/uL (130-400); Red Blood Cell Count 4.41 10^6/uL (4.70-6.10); Red Cell Dist. Width 13.9 % (11.5-14.5); White Blood Cell Count 9.4 10^3/uL (4.8-10.8)
[2024-07-06 07:19] LABS: Blood Urea Nitrogen 24 mg/dl (9-20); Calcium 8.3 mg/dl (8.4-10.2); Carbon Dioxide 19 mmol/L (22-30); Chloride 101 mmol/L (98-107); Estimated Creatinine Clearance 90 ml/min; Glucose 158 mg/dl (70-99); Potassium 4.5 mmol/L (3.5-5.1); Sodium 135 mmol/L (135-145); eGFR > 60.00
[2024-07-06 07:38] VITALS: BP 148/76
[2024-07-06 07:56] LABS: Glucose - Point of Care 140 mg/dl (70-99)
[2024-07-06] MEDS: HEPARIN 5000 UNITS SC (07:56)
[2024-07-06] MEDS: NOVOLOG FLEXPEN-LOW RESISTANCE SC (07:56)
[2024-07-06] MEDS: ZESTRIL 2.5 MG PO (07:56)
[2024-07-06] MEDS: THERAGRAN 1 TABLET PO (07:57)
--- NOTE | 2024-07-06 08:06 | PHA.VAN.FU ---
Vancomycin Assessment / Plan
- Assessment
Renal Function: SCR Decreasing
WBC's are: WNL
Concomitant Antimicrobials: cefepime, metronidazole
- Dosing Plan
Continue: Vanc 1500mg Q12H
- Monitoring Plan
Peak Level: 07/06 21:00
Trough Level: 07/07 05:30
Monitoring Comments: levels to be drawn after 6th maintenance dose
- Follow Up
Pharmacy will continue to follow.
Vancomycin Follow UP
- -
Patient Age: 69
Patient Sex: Male
Vancomycin Day #: 4
Indication: Bone And Joint
Requesting Provider: Dr. Vaughn / Jose
Pertinent Antimicrobial Allergies:
no pertinent antibiotic allergies
Height / Weight:
Height 5 ft 10 in
Actual Weight 92.986 kg
Pertinent Past Medical History: DM
- Vital Signs / Lab Results
Temp Pulse Resp BP Pulse Ox
98.4 F 76 16 148/76 98
07/06/24 07:38 07/06/24 07:38 07/06/24 07:38 07/06/24 07:38 07/06/24 07:38
Lab Results - Hematology
07/03/24 07/04/24 07/05/24
17: 06:27 05:55
WBC 9.3 8.6 8.1
07/06/24
06:10
WBC 9.4
Lab Results - Chemistry
07/03/24 07/04/24 07/05/24
17:24 06:27 05:55
BUN 23 H 21 H 21 H
Creatinine 0.9 1.0 1.0
Estimated Creat Clear 72 72
Albumin 3.7 3.1 L
07/06/24
06:10
BUN 24 H
Creatinine 0.8
Estimated Creat Clear 90
Albumin
Microbiology Results
07/03/24 21:40 Wound Culture - Preliminary
Foot - Left Staphylococcus aureus
Gram Stain - Preliminary
07/03/24 21:40 Anaerobic Culture - Preliminary
Foot - Left Culture pending. Anaerobic cultures are examined after 3
days incubation. Additional information to follow.
--- NOTE | 2024-07-06 08:11 | W.PN.UPDATE ---
Update Note
Progress Note Update
pt seen at bedside s/p TMA left foot
tissue looked healthy prior to closure
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
no pain
dressing with some blood noted
derm sutures intact, no cellulitis
no pus
no soi
cft to flap warm, with good cft
a/p s/p tma left---stable
cont abx, nwb left foot
bandages applied, packing advanced
will pull tomorrow
needs abx upon dc, rec iv if good with ID.
anticipate dc sat if cx back
[2024-07-06] MEDS: GLUCOPHAGE 1000 MG PO ×2 (09:04→17:28)
[2024-07-06] MEDS: FARXIGA 10 MG PO (09:04)
--- NOTE | 2024-07-06 10:27 | W.PN.HOSP.TC ---
Today's Communication/Plan
-
IV AB
Await OR Cx and Path
Restart metformin, Jardiance, Lantus insulin 10 units
PT OT
Patient seems to be ambulating well with crutches
Nonweightbearing right foot
Assessment / Plan
Assessment / Plan
69-year-old male presented with pain in drainage of the second and third toes over the past few weeks. He saw Dr. Cortes and was referred to the ER.
MRI-osteomyelitis of the second third metatarsal and second and third proximal phalanges. Dorsal dislocation of the second and third metatarsophalangeal joints. Previous amputation of the first ray. Multiple soft tissue wounds with extensive
cellulitis about the forefoot. Severe diabetic myopathy
CVS: S1-S2 normal
Chest: CTA B/L
Abdomen: Soft, NT / Bowel sounds present
Extremities: right foot bandaged- S/P TMA
No CP or SOB
# MRSA Osteomyelitis of the left foot with abscess
Continue vancomycin
Imaging with osteomyelitis and dislocation
Status post IND of the left foot-gas and pus removed 07/03/2024 and S/P TMA -07/05/2024
Wait for cultures and place in OR cultures and pathology
Wound CX before OR MRSA
Palpable pulses.
# Rvitjuthfjypk-xhsgrwh-fuvjzeanh likely secondary to infection
# Coronary artery disease with history of [place] and stent-continue aspirin and statin
# Diabetes-normally on Lantus 55 units, Trulicity 4.5 Mg SC TU , metformin and Jardiance as outpatient
Sugars stable
Restart metformin and Jardiance . Lantus 10 units ordered.
Need to closely monitor sugars-stable now
Hemoglobin A1c 9.4 indicates poor control- Pt aware
# Sleep apnea-continue CPAP
# Hypertension-continue lisinopril
# Hyperlipidemia-continue statin
# Glaucoma and impaired vision
# Obesity per BMI
# DVT prophylaxis-subcutaneous Lovenox
# Full code
D/W RN AT BED SIDE
Anticipated Discharge: 24 - 48 hours
Subjective/Interval History
-
Date of Service: July 06, 2024
Objective Data
-
Labs:
Laboratory Results
07/06/24
06:10
WBC 9.4
Hgb 13.4
Hct 38.6 L
Plt Count 338
Sodium 135
Potassium 4.5
Chloride 101
Carbon Dioxide 19 L
BUN 24 H
Creatinine 0.8
Glucose 158 H
Calcium 8.3 L
Vital Signs:
Vital Signs
Temp Pulse Resp BP Pulse Ox
98.4 F 76 16 148/76 98
07/06/24 07:38 07/06/24 07:38 07/06/24 07:38 07/06/24 07:38 07/06/24 07:38
I&O
07/05/24 07/06/24 07/07/24
06:59 06:59 06:59
Intake Total 1440 / 1440 1080 / 1080
Output Total 4000 / 4000 2925 / 2925
Balance -2560 / -2560 -1845 / -1845
[2024-07-06] MEDS: PINK BISMUTH 525 MG PO (11:10)
--- NOTE | 2024-07-06 11:19 | W.PN.ID1 ---
Date of Service
Date of Service: July 06, 2024
Today's Communication
Suspect surgical cure.
Can transition to doxycycline 100mg po bid x 2 weeks.
If bone path shows osteo at proximal margin, will arrange for IV abx as outpatient.
Follow up with me in 1 to 2 weeks
Can dc home.
Assessment / Plan
# Severe diabetic left foot infection with multiple abscesses, osteo
# Fever resolved
# Uncontrolled DM
-MRI + osteo second and third metatarsals and prox phalanges
- 07/03/24 s/p I+D abscesses
- 07/05/24 s/p TMA
OR cx's MRSA
-Suspect surgical cure.
Can transition to doxycycline 100mg po bid x 2 weeks.
If bone path shows osteo at proximal margin, will arrange for IV abx as outpatient.
-Folow up with me in 1 to 2 weeks
-Can dc home.
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
HTN
DM
Peripheral neuropathy
Dyslipidemia
CAD s/p stent
JEREMIAS
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
Left hallux amp site MRSA osteo s/p 6 weeks daptomycin (February 2024).
Left meniscus tear repair
Chief Complaint
-: Other (Severe diabetic foot infection)
Subjective / Review of Systems
Feels well.
Vital Signs / Physical Exam
Vital Signs
Vital Signs
Temp Pulse Resp BP Pulse Ox
98.4 F 76 16 148/76 98
07/06/24 07:38 07/06/24 07:38 07/06/24 07:38 07/06/24 07:38 07/06/24 07:38
Physical Exam
Constitutional: No Acute Distress and Comfortable
Pulmonary: Clear
Gastrointestinal: Non Tender and Non Distended
Wound: Other (left foot dressing dry)
Neurological: AO x 3
Objective Data
Lab Data
Lab Results
07/06/24 06:10
07/06/24 06:10
ESR 49 mm/hour (0-20) H 07/03/24 17:24
Estimated Creat Clear 90 ml/min 07/06/24 06:10
Total Bilirubin 0.8 mg/dl (0.2-1.3) 07/04/24 06:27
AST 57 U/L (17-59) 07/04/24 06:27
ALT 73 U/L (0-50) H 07/04/24 06:27
Alkaline Phosphatase 99 U/L (38-126) 07/04/24 06:27
C-Reactive Protein 156.30 mg/L (0.0-10.00) H 07/03/24 17:24
Most recent labs reviewed.
Micro Results:
07/05/24 17:57 Tissue Culture - Pending
Foot - Left Gram Stain - Preliminary
07/05/24 17:51 Tissue Culture - Pending
Foot - Left Gram Stain - Preliminary
07/05/24 17:51 Wound Culture - Pending
Toe Gram Stain - Preliminary
07/03/24 21:40 Wound Culture - Preliminary
Foot - Left Staph aureus MRSA
Gram Stain - Preliminary
07/05/24 17:51 Anaerobic Culture - Pending
Toe
07/03/24 21:40 Anaerobic Culture - Preliminary
Foot - Left Culture pending. Anaerobic cultures are examined after 3
days incubation. Additional information to follow.
07/03/24: XRAY: Severe soft tissue swelling in the dorsal left foot surrounding multiple bubbles of SOFT TISSUE EMPHYSEMA suggesting SEVERE CELLULITIS and a soft tissue abscess. Mild periosteal reaction in the bases and proximal shafts of the
proximal phalanges left 2nd and 3rd toes suspicious for acute osteomyelitis. New dorsal dislocation of the proximal phalanges of the left 2nd and 3rd toes.
07/04/24 MRI LLE: Osteomyelitis of the second and third metatarsals, and the second and third proximal phalanges. Dorsal dislocation of the second and third metatarsophalangeal joints. Previous amputation of the first ray.
Care Review
Plan reviewed with: Physician (Dr.. Oliva)
--- NOTE | 2024-07-06 12:02 | W.PN.UPDATE ---
Update Note
Progress Note Update
Spoke to Dr. Onofre Reyna. He prefers to dc patient on IV antibiotic (even if clean margin) due to extent of infection.
Transition Vancomycin, cefepime, metronidazole to Daptomycin 600mg IV q24 x 6 weeks. Check CK in am.
Place PICC.
Home infusion sheet submitted to bilingual patient support caseworker.
Anticipate dc home on Wednesday per podiatry.
Plan discussed with Dr. Oliva.
[2024-07-06 12:24] LABS: Glucose - Point of Care 168 mg/dl (70-99)
[2024-07-06] MEDS: NOVOLOG FLEXPEN-LOW RESISTANCE 1 UNITS SC (12:40)
[2024-07-06] MEDS: CUBICIN 24 MG IV (14:01)
[2024-07-06] MEDS: FLAGYL 500 MG PO ×2 (14:02→22:40)
[2024-07-06 15:33] VITALS: BP 124/81
[2024-07-06 16:37] LABS: Glucose - Point of Care 212 mg/dl (70-99)
--- NOTE | 2024-07-06 17:25 | CM ---
Received Script from [facility] for 600 mg IV q24 Daptomycin- end date 08/14/24. Through [facility]. Placed a call to Susan at [facility] but there was no answer. Will fax over all documentations to [facility] and call Susan in the am so that she can hopefully
she can coordinate medication and infusion. Will call Lavelle.
Plan: Case management will continue to follow and assist with discharge planning. Home with IV ABX.
[2024-07-06] MEDS: NOVOLOG FLEXPEN-LOW RESISTANCE 2 UNITS SC (17:26)
[2024-07-06] MEDS: LIPITOR 40 MG PO (17:27)
[2024-07-06] MEDS: ASPIR LOW (ENTERIC COATED) 81 MG PO (17:27)
[2024-07-06] MEDS: OSCAL 500 + D 500 MG PO (17:27)
[2024-07-06] MEDS: LOVENOX 40 MG SC (17:27)
[2024-07-06 19:31] LABS: Glucose - Point of Care 274 mg/dl (70-99)
[2024-07-06 22:16] LABS: Glucose - Point of Care 166 mg/dl (70-99)
[2024-07-06] MEDS: LANTUS 0.1 UNITS SC (22:40)
[2024-07-06] MEDS: XALATAN OPHTHALMIC SOLUTION 1 DROP BOTH EYES (22:40)
[2024-07-06 23:38] VITALS: BP 130/59
[2024-07-07] MEDS: FLAGYL 500 MG PO ×2 (05:04→13:57)
[2024-07-07 05:50] LABS: Blood Urea Nitrogen 19 mg/dl (9-20); Calcium 8.4 mg/dl (8.4-10.2); Carbon Dioxide 20 mmol/L (22-30); Chloride 102 mmol/L (98-107); Creatine Phosphokinase 69 U/L (55-170); Estimated Creatinine Clearance 103 ml/min; Glucose 159 mg/dl (70-99); Potassium 4.5 mmol/L (3.5-5.1); Sodium 137 mmol/L (135-145); eGFR > 60.00
[2024-07-07 07:46] VITALS: BP 122/60
[2024-07-07 07:53] LABS: Glucose - Point of Care 167 mg/dl (70-99)
[2024-07-07] MEDS: THERAGRAN 1 TABLET PO (08:29)
[2024-07-07] MEDS: GLUCOPHAGE 1000 MG PO (08:29)
[2024-07-07] MEDS: NOVOLOG FLEXPEN-LOW RESISTANCE 1 UNITS SC ×2 (08:29→12:54)
[2024-07-07] MEDS: ZESTRIL 2.5 MG PO (08:30)
[2024-07-07] MEDS: FARXIGA 10 MG PO (08:30)
--- NOTE | 2024-07-07 10:18 | CM ---
Addendum entered by MOHINI Latham 07/07/24 14:35:
Updated attending of this and she spoke with Podiatry who stated that he can see patient outpatient Wednesday. Spoke with Lavelle (Tara) and Susan at [facility] who are aware that [facility].
Placed a call to patient's to update. She requested patient call her on house phone when he is discharged so that she and patient's daughter can
know when to pick him up.
Will update patient.
Addendum entered by MOHINI Latham 07/07/24 13:16:
All clinical faxed over to Susan. Referral sent to [facility]. Susan returned call and stated that she has all information she needs. Patient has no co-pay for medication, just cost for supplies (about $140) a week. Patient was agreeable.
Received notification from attending that podiatry would like for patient to stay one more night.
Updated Susan from [facility] who stated that they will be out tomorrow after patient gets discharged and [facility] will be out as well. Susan stated that for scheduling it would be best if patient can be discharged between 12-.
Placed a call to patient's , Marisol, who stated that she will be in to pick patient up by 12 and he can have his dose after he gets home.
Original Note:
Placed a call to Susan at [facility] who stated to fax referral to [phone]. She will call Lizett from [facility] and check cost on med. Will send referral to [facility] for nursing care. Susan stated that she will return call once she review the referral
and get the process started.
Plan: Case management will continue to follow and assist with discharge planning. Home with IV ABX and VN.
[2024-07-07 11:42] LABS: Glucose - Point of Care 170 mg/dl (70-99)
--- NOTE | 2024-07-07 11:56 | W.PN.UPDATE ---
Update Note
Progress Note Update
pt seen for fu tma
no pain
mild bleeding on bandage
no cellulitis, no pus
sutures intact
flap warm and pink
cft intact
a/p a.p sp TMA---stable
no soi
+ mrsa 2nd met
abx per ID
nwb, will order vna for loose dry packing medial foot, betatdine adpatic to suture line daily
will see in am and should be able to be dc
[2024-07-07] MEDS: FLORASTOR 250 MG PO (12:52)
[2024-07-07] MEDS: IMODIUM 2 MG PO (12:52)
--- NOTE | 2024-07-07 13:39 | W.PN.HOSP.TC ---
Today's Communication/Plan
-
IV AB
Assessment / Plan
Assessment / Plan
69-year-old male presented with pain in drainage of the second and third toes over the past few weeks. He saw Dr. Cortes and was referred to the ER.
MRI-osteomyelitis of the second third metatarsal and second and third proximal phalanges. Dorsal dislocation of the second and third metatarsophalangeal joints. Previous amputation of the first ray. Multiple soft tissue wounds with extensive
cellulitis about the forefoot. Severe diabetic myopathy
CVS: S1-S2 normal
Chest: CTA B/L
Abdomen: Soft, NT / Bowel sounds present
Extremities: right foot bandaged- S/P TMA
# MRSA Osteomyelitis of the left foot with abscess
Continue vancomycin
Imaging with osteomyelitis and dislocation
Status post IND of the left foot-gas and pus removed 07/03/2024 and S/P TMA -07/05/2024
Wait for cultures and place in OR cultures and pathology
Wound CX MRSA
# Soft 2-3 times a day-symptomatic treatment.
.
# Xtkrorsjoawpu-ujebxpp-ipccuseqm likely secondary to infection
# Coronary artery disease with history of [place] and stent-continue aspirin and statin
# Diabetes-normally on Lantus 55 units, Trulicity 4.5 Mg SC TU , metformin and Jardiance as outpatient
Sugars stable
Restart metformin and Jardiance . Lantus 10 units ordered.
Need to closely monitor sugars-stable now
Hemoglobin A1c 9.4 indicates poor control- Pt aware
# Sleep apnea-continue CPAP
# Hypertension-continue lisinopril
# Hyperlipidemia-continue statin
# Glaucoma and impaired vision
# Obesity per BMI
# DVT prophylaxis-subcutaneous Lovenox
# Full code
D/W RN
D/W Case management-regarding arranging home infusion. Patient already has a PICC line in
Discussed with
D/W ID
D/W Pt's and updated.
Initially per discussion with Dr. Reyna patient may stay overnight and will be discharged Wednesday. I will find out from case management if this is possible with infusion company.
Time spent over 50 min
Anticipated Discharge: Within 24 hours
Subjective/Interval History
-
Date of Service: July 07, 2024
Objective Data
-
Labs:
Laboratory Results
07/07/24
05:01
Sodium 137
Potassium 4.5
Chloride 102
Carbon Dioxide 20 L
BUN 19
Creatinine 0.7
Glucose 159 H
Calcium 8.4
Vital Signs:
Vital Signs
Temp Pulse Resp BP Pulse Ox
97.8 F 90 16 122/60 99
07/07/24 07:46 07/07/24 07:46 07/07/24 07:46 07/07/24 07:46 07/07/24 07:46
I&O
07/06/24 07/07/24 07/08/24
06:59 06:59 06:59
Intake Total 1080 / 1080 1780 / 1780
Output Total 2925 / 2925 300 / 300
Balance -1845 / -1845 1480 / 1480
[2024-07-07] MEDS: CUBICIN 24 MG IV (13:57)
--- NOTE | 2024-07-07 14:37 | W.PN.UPDATE ---
Update Note
Progress Note Update
Infusion company will not come out on Sundays. Visiting nurse is not sure if they have a spot on Wednesday . Therefore discussed with Dr. Cortes who feels it is better to discharge patient today and have him follow-up with this office on Wednesday.
Case management help appreciated
Will discharge today
Total discharge coordination time 39 minutes
--- NOTE | 2024-07-07 14:48 | W.DS.TRANS ---
Addendum entered and electronically signed by Gilmar Oliva MD 07/07/24 15:19:
Dictation- [id number]
Original Note:
DC Summary - [employer]
-
Discharge Instructions:
Discharge Diagnosis/Procedures MRSA cellulitis, osteomyelitis
Coronary artery disease
Diabetes
Sleep apnea
Hypertension
High cholesterol
Diet Diabetic, Carb Controlled
Activity Do not bear weight R leg
Driving Restrictions No driving
Blood Work CBC, BMP, CPK weekly until antibiotics are
finished
Other Services VN
Instructions:
Stand-Alone Forms:
Changes to Home Medications: Yes
Discharge Medications:
DC Medications w/original date entered in [facility]
glucosamine-chondroitin 250 mg-200 mg tablet (Osteo Bi-Flex) 2 tab PO BID@0800,1700 Supplement ##0 07/16/10
aspirin 81 mg tablet,delayed release 81 mg PO QPM Blood Clot Prevention/Tx 11/16/23
calcium 600 mg (as carbonate)-vitamin D3 5 mcg (200 unit) tablet (Calcium 600 + D(3)) 1 tab PO QPM Supplement 11/16/23
dulaglutide 4.5 mg/0.5 mL subcutaneous pen injector (Trulicity) 4.5 mg SC TU Diabetes 11/16/23
empagliflozin 25 mg tablet (Jardiance) 25 mg PO DAILY Diabetes 11/16/23
metformin 1,000 mg tablet 1,000 mg PO BID@0800,1700 Diabetes 11/16/23
multivitamin 1 tab PO DAILY Supplement 11/16/23
nitroglycerin 0.4 mg sublingual tablet 0.4 mg sublingual [id number] PRN chest pain 11/16/23
sildenafil 100 mg tablet 100 mg PO DAILY PRN ed 11/16/23
DAPTOmycin [Cubicin] 600 mg As Directed mls/hr IV Q24H Infection 07/07/24
acetaminophen 325 mg tablet 650 mg (2 x 325 mg) PO Q4HPRN PRN pain #0 tabs 07/07/24
atorvastatin 40 mg tablet 40 mg PO QPM High cholesterol #90 tabs 07/07/24
insulin glargine 100 unit/mL (3 mL) subcutaneous pen (Lantus Solostar U-100 Insulin) 15 unit (0.15 mL) SC HS Diabetes #0 mL 07/07/24
latanoprost 0.005 % eye drops 1 drp BOTH EYES HS Eye condition #2.5 mL 07/07/24
lisinopril 2.5 mg tablet 2.5 mg PO DAILY Blood pressure #90 tabs 07/07/24
Home Medication Changes
Lantus insulin dose reduced
Daptomycin is new
Pending Results: Yes
Total time spent discharging patient (in min): Tissue pathology and cultures
[2024-07-07 15:35] VITALS: BP 124/60
== END 2024-07-07 15:57 | disposition home health service (06) | DRG 616 ==
LOC: 3 WEST ACU 19:32
PROVIDERS: Radiology Diagnostic Radiology; ADMITTING PHYSICIAN Hospitalist; ATTENDING PHYSICIAN Hospitalist; CONSULT PHYSICIAN Internal Medicine Infectious Disease; CONSULT PHYSICIAN Podiatrist Foot Surgery; EMERGENCY PHYSICIAN Emergency Medicine; FAMILY PHYSICIAN Family Medicine
PROC: 0JBR0ZZ Excision of Left Foot Subcutaneous Tissue and Fascia, Open Approach (ICD-10-PCS; 2024-07-03)
PROC: 0Y6N0Z9 Detachment at Left Foot, Partial 1st Ray, Open Approach (ICD-10-PCS; 2024-07-05)
PROC: 0Y6N0ZD Detachment at Left Foot, Partial 4th Ray, Open Approach (ICD-10-PCS; 2024-07-05)
PROC: 5A09357 Assistance with Respiratory Ventilation, Less than 24 Consecutive Hours, Continuous Positive Airway Pressure (ICD-10-PCS; 2024-07-05)
PROC: 0Y6N0ZB Detachment at Left Foot, Partial 2nd Ray, Open Approach (ICD-10-PCS; 2024-07-05)
PROC: 0Y6N0ZC Detachment at Left Foot, Partial 3rd Ray, Open Approach (ICD-10-PCS; 2024-07-05)
PROC: 0Y6N0ZF Detachment at Left Foot, Partial 5th Ray, Open Approach (ICD-10-PCS; 2024-07-05)
PROC: 02HV33Z Insertion of Infusion Device into Superior Vena Cava, Percutaneous Approach (ICD-10-PCS; 2024-07-06)
DX: E11.69 Type 2 diabetes mellitus with other specified complication (principal); A48.0 Gas gangrene; E11.52 Type 2 diabetes mellitus with diabetic peripheral angiopathy with gangrene; L02.612 Cutaneous abscess of left foot; L03.116 Cellulitis of left lower limb; M86.172 Other acute osteomyelitis, left ankle and foot; E11.40 Type 2 diabetes mellitus with diabetic neuropathy, unspecified; E78.00 Pure hypercholesterolemia, unspecified; G47.33 Obstructive sleep apnea (adult) (pediatric); R74.01 Elevation of levels of liver transaminase levels; B95.62 Methicillin resistant Staphylococcus aureus infection as the cause of diseases classified elsewhere; L97.529 Non-pressure chronic ulcer of other part of left foot with unspecified severity; E11.621 Type 2 diabetes mellitus with foot ulcer; E78.5 Hyperlipidemia, unspecified; H40.9 Unspecified glaucoma; E11.39 Type 2 diabetes mellitus with other diabetic ophthalmic complication; E66.9 Obesity, unspecified; I10 Essential (primary) hypertension; I25.10 Atherosclerotic heart disease of native coronary artery without angina pectoris; Z66 Do not resuscitate; I25.2 Old myocardial infarction; Z79.82 Long term (current) use of aspirin; Z79.84 Long term (current) use of oral hypoglycemic drugs; Z79.4 Long term (current) use of insulin; Z95.5 Presence of coronary angioplasty implant and graft; Z68.29 Body mass index [BMI] 29.0-29.9, adult
CPT/HCPCS: 88304; 88307; 88311; 71045; 73630; 73720; 80048; 80053; 82550; 82962; 83036; 85025; 85027; 85652; 86140; 86850; 86900; 86901; 87070; 87075; 87076; 87077; 87147; 87176; 87186; 87205; 93005; 99285; A9575; J0878

== ENCOUNTER 2024-07-21 10:51 | Outpatient (RCR) | payer MEDICARE, OTHER, SELFPAY ==
[2024-07-21] MEDS: INVANZ 60 MG IV (11:33)
[2024-07-21 11:37] VITALS: BP 134/76
[2024-07-21 12:02] LABS: % Basophils 0.9 % (0-2); % Eosinophils 9.2 % (0-6); % Immature Granulocytes 0.3 % (0-0.5); % Lymphocytes 21.1 % (20.5-51.1); % Monocytes 7.2 % (1.7-9.3); % Neutrophils 61.3 % (42.2-75.2); Absolute Basophils 0.1 10^3/uL (0-0.2); Absolute Eosinophils 0.8 10^3/uL (0-0.7); Absolute Lymphocytes 1.9 10^3/uL (1.2-3.4); Absolute Monocytes 0.6 10^3/uL (0.1-0.6); Absolute Neutrophils 5.4 10^3/uL (1.4-6.5); Hematocrit 42.2 % (39.0-52.0); Hemoglobin 14.2 g/dL (13.0-18.0); Mean Corp Hgb Conc. 33.6 g/dL (33.0-37.0); Mean Corpuscular Hgb 29.6 pg (27.0-31.0); Mean Corpuscular Volume 87.9 fL (80.0-94.0); Mean Platelet Volume 8.8 fL (7.4-10.4); Nucleated Red Blood Cells % 0 % (-); Platelet Count 353 10^3/uL (130-400); Red Cell Dist. Width 14.3 % (11.5-14.5); White Blood Cell Count 8.9 10^3/uL (4.8-10.8)
[2024-07-21 12:54] LABS: ALT (SGPT) 40 U/L (0-50); AST (SGOT) 31 U/L (17-59); Alkaline Phosphatase 98 U/L (38-126); Blood Urea Nitrogen 16 mg/dl (9-20); Calcium 9.8 mg/dl (8.4-10.2); Carbon Dioxide 28 mmol/L (22-30); Chloride 99 mmol/L (98-107); Creatine Phosphokinase 55 U/L (55-170); Glucose 113 mg/dl (70-99); Potassium 4.6 mmol/L (3.5-5.1); Sodium 141 mmol/L (135-145); Total Bilirubin 0.4 mg/dl (0.2-1.3); Total Protein 6.9 g/dl (6.3-8.2); eGFR > 60.00
== END 2024-07-24 08:53 | disposition home or self-care (01) ==
LOC: OID 10:51
PROVIDERS: ATTENDING PHYSICIAN Internal Medicine Infectious Disease; FAMILY PHYSICIAN Family Medicine
DX: M86.8X7 Other osteomyelitis, ankle and foot (principal)
CPT/HCPCS: 36591; 80053; 82550; 85025; 86140; 96365; J1335

== ENCOUNTER → 2025-09-18 13:01 | Outpatient (REF) | payer MEDICARE, OTHER, SELFPAY | LOC: RCS 13:01 | PROVIDERS: ATTENDING PHYSICIAN Podiatrist Foot Surgery; FAMILY PHYSICIAN Family Medicine | DX: Z01.818 Encounter for other preprocedural examination (principal) | CPT/HCPCS: 93005 ==